=== PATIENT | male | born 1950 | race Caucasian/White ===

== ENCOUNTER 2016-05-22 14:34 | Emergency (ER) | payer OTHER ==
[~2016-05-22] VITALS: Ht 170.2 cm; Wt 85.0 kg
[~2016-05-22 14:34] MED LIST: AMLO5 PO; ATOR1TAB18 PO; CLOP75TA PO; CYCL5TAB PO; HYDR-3533 PO; ISOS30TA3 PO; METO50TA PO
[2016-05-22 14:43] VITALS: BP 110/73; PULSE 66; RESP 17; TEMP 97.9; O2SAT 100
[2016-05-22] MEDS ORDERED: METO100T PO (16:29)
[2016-05-22] MEDS ORDERED: ATOR1TAB18 PO (16:29)
[2016-05-22] MEDS ORDERED: CLOP75TA PO (16:29)
[2016-05-22] MEDS ORDERED: ASPI1TAB69 PO (16:29)
[2016-05-22] MEDS ORDERED: NITROGLYCERIN 2% OINT 1 GM PACKET TOP ONE (16:45)
[2016-05-22] MEDS ORDERED: ASPIRIN 325 MG TAB PO ONE (16:45)
[2016-05-22] MEDS ORDERED: SODIUM CHLORIDE 0.9% FLUSH 5 ML FLUSH IVF PRN (16:45)
--- NOTE | 2016-05-22 16:47 | PD ---
HPI Chief Complaint: Pain: Acute or Chronic Time Seen by Provider: 16:34 Travel History International Travel<30 days: No Contact w/Intl Traveler<30days: No Traveled to known affect area: No History of Present Illness HPI 66-year-old male with history of CAD status post CABG, peripheral vascular disease, hypertension, presents to the ER today because of upper back discomfort and chest discomfort which he rates at a 5 out of 10, worsens with exertion, without radiation. He denies any shortness of breath, nausea, vomiting, coughing, or any other symptoms. He states he has not had similar symptoms in the past. He denies injuries. Modifying Factors: Worse with exertion Associated Signs & Symptoms: Upper back and chest pain Risk Factors: Cardiac history PFSH Past Medical History Hx Anticoagulant Therapy: Yes (PLAVIX) Arthritis: Yes Blood Disorders: Yes (HX OF BEING NON-COMPLIANT WITH COUMADIN THERAPY) Heart Rhythm Problems: No Cancer: No Cardiac Catheterization: Yes (03/2014) Cardiovascular Problems: Yes (CT, HTN) High Cholesterol: Yes Chemotherapy: No Chest Pain: Yes Congestive Heart Failure: Yes Cerebrovascular Accident: Yes (CVA) Coronary Artery Disease: Yes Diabetes: No Diminished Hearing: No Endocrine: No Gastrointestinal Disorders: No Genitourinary: No Headaches: Yes Hepatitis: No Hiatal Hernia: No Hypertension: Yes Immune Disorder: No Implanted Vascular Access Dvce: Yes Musculoskeletal: Yes (TENDONITIS) Neurologic: Yes (STROKE 2007) Psychiatric: No Reproductive: No Respiratory: No Immunizations Current: Yes (FLU SHOT-2007) Thyroid Disease: No Influenza Vaccination: No ?: Not Past Surgical History Abdominal Surgery: No AICD: No Arteriovenous Shunt: No Body Medical Devices: STENTS X 4 TO RCA,chest wires from cabg Cardiac Surgery: Yes (4 STENTS PLACED 03/27,cabg one ves) Coronary Artery Bypass Graft: Yes (X 1 VESSEL 2004) Ear Surgery: No Endocrine Surgery: No Eye Surgery: No Genitourinary Surgery: No Gynecologic Surgery: No Hysterectomy: No Insulin Pump: No Joint Replacement: No Neurologic Surgery: No Oral Surgery: No Pacemaker: No Thoracic Surgery: No Tonsillectomy: Yes (1968) Other Surgery: Yes (ABCESS REMOVED RIGHT BUTTOCKS X8) Social History Alcohol Use: No Tobacco Use: No (QUIT 04/02/14) Substance Use: No Allergies-Medications (Allergen,Severity, Reaction): Coded Allergies: No Known Allergies (Verified , 05/22/16) Reported Meds & Prescriptions Reported Meds & Active Scripts Active Reported Clopidogrel (Clopidogrel Bisulfate) 75 Mg Tab 75 Mg PO DAILY Atorvastatin (Atorvastatin Calcium) 80 Mg Tab 80 Mg PO HS Aspirin 81 Mg Tabdr 81 Mg PO DAILY Metoprolol Tartrate 100 Mg Tab 100 Mg PO BID Norvasc (Amlodipine Besylate) 5 Mg Tab 5 Mg PO DAILY Isosorbide Mononitrate ER (Isosorbide Mononitrate) 30 Mg Leonarda 30 Mg PO DAILY Review of Systems Except as stated in HPI: all other systems reviewed are Neg Physical Exam Narrative GENERAL: Well-developed elderly white male in no acute distress. Awake and oriented 3. SKIN: Warm and dry. HEAD: Atraumatic. Normocephalic. EYES: Pupils equal and round. No scleral icterus. No injection or drainage. ENT: No nasal bleeding or discharge. Mucous membranes pink and moist. NECK: Trachea midline. No JVD. CARDIOVASCULAR: Regular rate and rhythm. No murmur appreciated. Pulses are present and equal bilaterally. RESPIRATORY: No accessory muscle use. Clear to auscultation. Breath sounds equal bilaterally. GASTROINTESTINAL: Abdomen soft, non-tender, nondistended. Hepatic and splenic margins not palpable. MUSCULOSKELETAL: No obvious deformities. No clubbing. No cyanosis. No edema. NEUROLOGICAL: Awake and alert. No obvious cranial nerve deficits. Motor grossly within normal limits. Normal speech. PSYCHIATRIC: Appropriate mood and affect; insight and judgment normal. Data Data Last Documented VS Vital Signs Date Time Temp Pulse Resp B/P Pulse Ox O2 Delivery O2 Flow Rate FiO2 05/22/16 17:15 62 14 102/66 96 Room Air 05/22/16 14:43 97.9 Orders Electrocardiogram (05/22/16 16:34) Ckmb (Isoenzyme) Profile (05/22/16 16:34) Complete Blood Count With Diff (05/22/16 16:34) Comprehensive Metabolic Panel (05/22/16 16:34) Magnesium (Mg) (05/22/16 16:34) Prothrombin Time / Inr (Pt) (05/22/16 16:34) Act Partial Throm Time (Ptt) (05/22/16 16:34) Troponin I (05/22/16 16:34) Lipase (05/22/16 16:34) Chest, Single Ap (05/22/16 16:34) Ecg Monitoring (05/22/16 16:34) Bilateral Bp Monitoring (05/22/16 16:34) Iv Access Insert/Monitor (05/22/16 16:34) Oximetry (05/22/16 16:34) Oxygen Administration (05/22/16 16:34) Aspirin (Aspirin) (05/22/16 16:45) Nitroglycerin 2% Oint (Nitroglycerin 2% (05/22/16 16:45) Sodium Chloride 0.9% Flush (Ns Flush) (05/22/16 16:45) Labs Laboratory Tests Test 05/22/16 16:15 White Blood Count 7.3 TH/MM3 Red Blood Count 4.80 MIL/MM3 Hemoglobin 14.9 GM/DL Hematocrit 45.2 % Mean Corpuscular Volume 94.3 FL Mean Corpuscular Hemoglobin 31.1 PG Mean Corpuscular Hemoglobin 33.0 % Concent Red Cell Distribution Width 13.1 % Platelet Count 395 TH/MM3 Mean Platelet Volume 7.1 FL Neutrophils (%) (Auto) 62.5 % Lymphocytes (%) (Auto) 27.3 % Monocytes (%) (Auto) 6.8 % Eosinophils (%) (Auto) 2.8 % Basophils (%) (Auto) 0.6 % Neutrophils # (Auto) 4.6 TH/MM3 Lymphocytes # (Auto) 2.0 TH/MM3 Monocytes # (Auto) 0.5 TH/MM3 Eosinophils # (Auto) 0.2 TH/MM3 Basophils # (Auto) 0.0 TH/MM3 CBC Comment DIFF FINAL Differential Comment Prothrombin Time 10.0 SEC Prothromb Time International 0.9 RATIO Ratio Activated Partial 26.3 SEC Thromboplast Time Sodium Level 140 MEQ/L Potassium Level 4.7 MEQ/L Chloride Level 108 MEQ/L Carbon Dioxide Level 23.4 MEQ/L Anion Gap 9 MEQ/L Blood Urea Nitrogen 11 MG/DL Creatinine 1.00 MG/DL Estimat Glomerular Filtration 75 ML/MIN Rate Random Glucose 97 MG/DL Calcium Level 8.3 MG/DL Magnesium Level 2.1 MG/DL Total Bilirubin 0.3 MG/DL Aspartate Amino Transf 18 U/L (AST/SGOT) Alanine Aminotransferase 31 U/L (ALT/SGPT) Alkaline Phosphatase 123 U/L Total Creatine Kinase 32 U/L Troponin I LESS THAN 0.02 NG/ML Total Protein 7.0 GM/DL Albumin 3.1 GM/DL Lipase 99 U/L [facility] Medical Decision Making Medical Screen Exam Complete: Yes Emergency Medical Condition: Yes Medical Record Reviewed: Yes Interpretation(s) EKG shows a normal sinus rhythm at a rate of 60 bpm with a left fascicular block and right bundle branch block pattern. No signs of acute ST-T changes. Laboratory Tests Test 05/22/16 16:15 Chloride Level 108 MEQ/L (98-107) Estimat Glomerular Filtration 75 ML/MIN (>89) Rate Calcium Level 8.3 MG/DL (8.5-10.1) Alkaline Phosphatase 123 U/L (45-117) Total Creatine Kinase 32 U/L (39-308) Troponin I LESS THAN 0.02 NG/ML (0.02-0.05) Albumin 3.1 GM/DL (3.4-5.0) Differential Diagnosis Upper back and chest painACS versus musculoskeletal versus pleurisy versus pneumonia Narrative Course Chest x-ray did not show any signs of acute pulmonary processes. Vital signs are stable. Cardiac enzymes are negative. EKG did not show any signs of acute ST-T changes. Patient was given aspirin and nitroglycerin in the ER. On reevaluation at 5:30 PM, he reports no significant improvement in back discomfort. At this point, I have offered to admit the patient for further evaluation and treatment as well as cardiology evaluation. Has cardiac risk factors and is a higher risk category for other acute processes. However, the patient states he does not want to get further workup at this time, states that he wants to follow-up with who is his picker packer. I have talked him about the fact that due to the fact that we cannot completely rule out acute processes, he needs to return if he feels any worsening or if he changes his mind. He states understanding. At this point, he has stated that he would prefer to follow-up as an outpatient even though risk of acute processes or underlying cardiac processes cannot be ruled out. Diagnosis Primary Impression: Chest pain Additional Impression: Back pain Med/Other Pt SpecificInfo: Prescription(s) given Scripts Hydrocodone-Acetaminophen (Lortab)5-325 Mg Tab1 Tab PO Q6H PRN (PAIN) #12 TAB Ref 0 Prov:Michell Mejia MD 05/22/16 Disposition: 01 DISCHARGE HOME Condition: Stable SoonMichell costa MD May 22, 2016 16:47
[2016-05-22 16:48] VITALS: O2SAT 98
[2016-05-22 16:50] LABS: AUTOMATED NEUTROPHIL # 4.6 TH/MM3 (1.8-7.7); BASOPHIL % 0.6 % (0.0-2.0); EOSINOPHIL # 0.2 TH/MM3 (0-0.4); EOSINOPHIL % 2.8 % (0.0-4.0); HEMATOCRIT 45.2 % (39.0-51.0); HEMO FLAGS DIFF FINAL; LYMPH % 27.3 % (9.0-44.0); MEAN CELL VOLUME 94.3 FL (80.0-100.0); MEAN CORPUSCULAR HEMOGLOBIN 31.1 PG (27.0-34.0); MONO % 6.8 % (0.0-8.0); NEUT % 62.5 % (16.0-70.0); PLATELET COUNT 395 TH/MM3 (150-450); RED CELL DISTRIBUTION WIDTH 13.1 % (11.6-17.2); WHITE BLOOD COUNT 7.3 TH/MM3 (4.0-11.0)
--- NOTE | 2016-05-22 16:57 | RADHPO ---
EXAM DATE/TIME: 05/22/2016 16:45 [facility] COMPARISON: No previous studies available for comparison. INDICATIONS : Chest pain MEDICAL HISTORY : None. SURGICAL HISTORY : CABG. ENCOUNTER: Initial ACUITY: 1 day PAIN SCORE: 8/10 LOCATION: Bilateral chest FINDINGS: A single view of the chest demonstrates the lungs to be symmetrically aerated without evidence of mas s, infiltrate or effusion. The cardiomediastinal contours are unremarkable. Osseous structures are intact. Median sternotomy changes are again noted. CONCLUSION: No evidence of acute cardiopulmonary disease. Javier Zavala MD on May 22, 2016 at 16:56 Board Certified Radiologist. This report was verified electronically.
[2016-05-22 17:01] LABS: CHLORIDE 108 MEQ/L (98-107); POTASSIUM 4.7 MEQ/L (3.5-5.1); SODIUM (NA) 140 MEQ/L (136-145)
[2016-05-22 17:05] LABS: ANION GAP 9 MEQ/L (5-15); APTT (PATIENT) 26.3 SEC (24.3-30.1); BICARBONATE 23.4 MEQ/L (21.0-32.0); BLOOD UREA NITROGEN 11 MG/DL (7-18); INTERNATIONAL NORMALIZED RATIO 0.9 RATIO; MAGNESIUM 2.1 MG/DL (1.5-2.5)
[2016-05-22 17:08] LABS: ALT (GPT) 31 U/L (12-78); AST (GOT) 18 U/L (15-37); GLOMERULAR FILTRATION RATE 75 ML/MIN (>89)
[2016-05-22 17:09] LABS: TOTAL BILIRUBIN ADULT 0.3 MG/DL (0.2-1.0)
[2016-05-22 17:11] LABS: ALKALINE PHOSPHATASE 123 U/L (45-117)
[2016-05-22 17:15] VITALS: BP 102/66; PULSE 62; RESP 14; O2SAT 96
[2016-05-22 17:28] LABS: CREATINE KINASE 32 U/L (39-308)
[2016-05-22] MEDS ORDERED: HYDR-3533 PO (17:39)
--- NOTE | 2016-05-23 15:00 | EKG ---
Date Performed: 05/22/2016 Time Performed: 16:37:18 PTAGE: 66 years EKG: Sinus rhythm Left axis deviation RBBB with left anterior fascicular block Possible anterior infarct - age undeter mined Inferior/lateral ST-T changes may be due to myocardial ischemia Abnormal ECG Compared to prior tracing no significant change PREVIOUS TRACING : 05/22/2016 16.09 DOCTOR: Mindy Fisher Interpretating Date/Time 05/23/2016 14:53:39
--- NOTE | 2016-05-23 15:44 | EKG ---
Date Performed: 05/22/2016 Time Performed: 16:09:38 PTAGE: 66 years EKG: Sinus bradycardia Left axis deviation RBBB with left anterior fascicular block Possible ant erior infarct - age undetermined Inferior/lateral ST-T changes may be due to myocardial ischemia Comp ared to the previous tracing the patient has developed prominent lateral T wave changes. They are non specific but clinical correlation will be important. Abnormal ECG PREVIOUS TRACING : 07/17/2015 13.29 DOCTOR: Mindy Fisher Interpretating Date/Time 05/23/2016 15:42:07
== END 2016-05-22 17:52 | disposition home or self-care (01) ==
LOC: PHED 14:34
DX: R07.9 Chest pain, unspecified (principal); M54.9 Dorsalgia, unspecified; I10 Essential (primary) hypertension; I50.9 Heart failure, unspecified; Z86.73 Personal history of transient ischemic attack (TIA), and cerebral infarction without residual deficits; I25.10 Atherosclerotic heart disease of native coronary artery without angina pectoris; E78.00 Pure hypercholesterolemia, unspecified; Z79.01 Long term (current) use of anticoagulants; Z87.891 Personal history of nicotine dependence
CPT/HCPCS: 71010; 80053; 82550; 83690; 83735; 84484; 85025; 85610; 85730; 93005

== ENCOUNTER 2016-09-18 01:01 | Emergency (ER) | payer OTHER ==
[~2016-09-18] VITALS: Ht 170.2 cm; Wt 86.6 kg
[~2016-09-18 01:01] MED LIST changes: +ASPI1TAB69 PO; -CYCL5TAB PO; +METO100T PO; -METO50TA PO
[2016-09-18 01:20] VITALS: BP 134/69; PULSE 72; RESP 18; TEMP 98.3; O2SAT 98
[2016-09-18 02:20] VITALS: BP 122/71; PULSE 69; RESP 17; O2SAT 98
[2016-09-18] MEDS ORDERED: ASPI81CH CHEW (03:11)
[2016-09-18] MEDS ORDERED: traMADol HCL 50 MG TAB PO ONE (03:15)
[2016-09-18 03:20] VITALS: BP 119/70; PULSE 72; RESP 18; O2SAT 95
[2016-09-18 03:23] LABS: AUTOMATED NEUTROPHIL # 8.3 TH/MM3 (1.8-7.7); BASOPHIL # 0.1 TH/MM3 (0-0.2); BASOPHIL % 1.2 % (0.0-2.0); EOSINOPHIL # 0.2 TH/MM3 (0-0.4); EOSINOPHIL % 1.9 % (0.0-4.0); HEMATOCRIT 46.4 % (39.0-51.0); HEMO FLAGS DIFF FINAL; LYMPH % 19.1 % (9.0-44.0); LYMPHOCYTE # 2.2 TH/MM3 (1.0-4.8); MEAN CELL VOLUME 94.8 FL (80.0-100.0); MEAN CORPUSCULAR HEMOGLOBIN 32.2 PG (27.0-34.0); MEAN CORPUSCULAR HGB CONC 33.9 % (32.0-36.0); NEUT % 70.8 % (16.0-70.0); PLATELET COUNT 323 TH/MM3 (150-450); RED CELL DISTRIBUTION WIDTH 12.4 % (11.6-17.2); WHITE BLOOD COUNT 11.6 TH/MM3 (4.0-11.0)
[2016-09-18 03:29] LABS: BLOOD UREA NITROGEN 12 MG/DL (7-18); GLOMERULAR FILTRATION RATE 60 ML/MIN (>89)
--- NOTE | 2016-09-18 03:29 | PD ---
HPI Chief Complaint: Pain: Acute or Chronic Time Seen by Provider: 03:26 Travel History International Travel<30 days: No Contact w/Intl Traveler<30days: No Traveled to known affect area: No History of Present Illness HPI 66-year-old male with history of CAD status post CABG, hypertension, previous stroke, presents to the ER today with left-sided shoulder pain that started while he was eating, states that he is not sure whether she looked his shoulder wrong. He states the pain is currently a 7 out of 10 and it hurts more with movement of his shoulder. Pain is more isolated to the left anterior rotator cuff area. He denies any shortness of breath, fevers, coughing, or any other symptoms. Modifying Factors: None Associated Signs & Symptoms: Left-sided shoulder pain Risk Factors: None PFSH Past Medical History Hx Anticoagulant Therapy: Yes (PLAVIX) Arthritis: Yes Blood Disorders: Yes (HX OF BEING NON-COMPLIANT WITH COUMADIN THERAPY) Heart Rhythm Problems: No Cancer: No Cardiac Catheterization: Yes (03/2014) Cardiovascular Problems: Yes (CABGX1, [place]) High Cholesterol: Yes Chemotherapy: No Chest Pain: Yes Congestive Heart Failure: Yes Cerebrovascular Accident: Yes Coronary Artery Disease: Yes Diabetes: No Diminished Hearing: No Endocrine: No Gastrointestinal Disorders: No Genitourinary: No Headaches: Yes Hepatitis: No Hiatal Hernia: No Hypertension: Yes Immune Disorder: No Implanted Vascular Access Dvce: Yes Musculoskeletal: Yes (TENDONITIS) Neurologic: Yes (STROKE 2007) Psychiatric: No Reproductive: No Respiratory: No Immunizations Current: Yes (FLU SHOT-2007) Thyroid Disease: No Tetanus Vaccination: < 5 Years Past Surgical History Abdominal Surgery: No AICD: No Arteriovenous Shunt: No Body Medical Devices: STENTS X 4 TO RCA,chest wires from cabg Cardiac Surgery: Yes (4 STENTS PLACED 03/27,cabg one ves) Coronary Artery Bypass Graft: Yes (X 1 VESSEL 2004) Ear Surgery: No Endocrine Surgery: No Eye Surgery: No Genitourinary Surgery: No Gynecologic Surgery: No Hysterectomy: No Insulin Pump: No Joint Replacement: No Neurologic Surgery: No Oral Surgery: No Pacemaker: No Thoracic Surgery: No Tonsillectomy: Yes (1968) Other Surgery: Yes (ABCESS REMOVED RIGHT BUTTOCKS X8) Social History Alcohol Use: No Tobacco Use: No (QUIT 04/02/14) Substance Use: No Allergies-Medications (Allergen,Severity, Reaction): Coded Allergies: No Known Allergies (Verified , 09/18/16) Reported Meds & Prescriptions Reported Meds & Active Scripts Active Reported Aspirin 81 Mg Chew 81 Mg CHEW DAILY Clopidogrel (Clopidogrel Bisulfate) 75 Mg Tab 75 Mg PO DAILY Atorvastatin (Atorvastatin Calcium) 80 Mg Tab 80 Mg PO HS Metoprolol Tartrate 100 Mg Tab 50 Mg PO BID Norvasc (Amlodipine Besylate) 5 Mg Tab 5 Mg PO DAILY Isosorbide Mononitrate ER (Isosorbide Mononitrate) 30 Mg Leonarda 30 Mg PO DAILY Review of Systems Except as stated in HPI: all other systems reviewed are Neg Physical Exam Narrative GENERAL: Well-developed elderly white male patient currently in mild distress. Awake and oriented 3. SKIN: Focused skin assessment warm/dry. HEAD: Atraumatic. Normocephalic. EYES: Pupils equal and round. No scleral icterus. No injection or drainage. ENT: No nasal bleeding or discharge. Mucous membranes pink and moist. NECK: Trachea midline. No JVD. CARDIOVASCULAR: Regular rate and rhythm. No murmur appreciated. Pulses are present and equal bilaterally. RESPIRATORY: No accessory muscle use. Clear to auscultation. Breath sounds equal bilaterally. GASTROINTESTINAL: Abdomen soft, non-tender, nondistended. Hepatic and splenic margins not palpable. MUSCULOSKELETAL: No obvious deformities. No clubbing. No cyanosis. No edema. EXTREMITIES: No clubbing, cyanosis, or edema. No joint tenderness, effusion, or edema noted. There is mild tenderness on palpation of the left anterior shoulder area without obvious deformities, tenderness with passive range of motion of arm overhead. NEUROLOGICAL: Awake and alert. No obvious cranial nerve deficits. Motor grossly within normal limits. Normal speech. PSYCHIATRIC: Appropriate mood and affect; insight and judgment normal. Data Data Last Documented VS Vital Signs Date Time Temp Pulse Resp B/P Pulse Ox O2 Delivery O2 Flow Rate FiO2 09/18/16 03:33 17 09/18/16 03:20 72 119/70 95 Room Air 09/18/16 01:20 98.3 Orders Tramadol (Ultram) (09/18/16 03:15) Complete Blood Count With Diff (09/18/16 02:30) Creatine Kinase (Cpk) (09/18/16 02:30) Comprehensive Metabolic Panel (09/18/16 02:30) Troponin I (09/18/16 02:30) Labs Laboratory Tests Test 09/18/16 02:30 White Blood Count 11.6 TH/MM3 Red Blood Count 4.90 MIL/MM3 Hemoglobin 15.8 GM/DL Hematocrit 46.4 % Mean Corpuscular Volume 94.8 FL Mean Corpuscular Hemoglobin 32.2 PG Mean Corpuscular Hemoglobin 33.9 % Concent Red Cell Distribution Width 12.4 % Platelet Count 323 TH/MM3 Mean Platelet Volume 7.5 FL Neutrophils (%) (Auto) 70.8 % Lymphocytes (%) (Auto) 19.1 % Monocytes (%) (Auto) 7.0 % Eosinophils (%) (Auto) 1.9 % Basophils (%) (Auto) 1.2 % Neutrophils # (Auto) 8.3 TH/MM3 Lymphocytes # (Auto) 2.2 TH/MM3 Monocytes # (Auto) 0.8 TH/MM3 Eosinophils # (Auto) 0.2 TH/MM3 Basophils # (Auto) 0.1 TH/MM3 CBC Comment DIFF FINAL Differential Comment Sodium Level 136 MEQ/L Potassium Level 4.6 MEQ/L Chloride Level 103 MEQ/L Carbon Dioxide Level 26.3 MEQ/L Anion Gap 7 MEQ/L Blood Urea Nitrogen 12 MG/DL Creatinine 1.20 MG/DL Estimat Glomerular Filtration 60 ML/MIN Rate Random Glucose 107 MG/DL Calcium Level 8.3 MG/DL Total Bilirubin 0.5 MG/DL Aspartate Amino Transf 32 U/L (AST/SGOT) Alanine Aminotransferase 40 U/L (ALT/SGPT) Alkaline Phosphatase 140 U/L Total Creatine Kinase 61 U/L Troponin I LESS THAN 0.02 NG/ML Total Protein 7.6 GM/DL Albumin 3.4 GM/DL [facility] Medical Decision Making Medical Screen Exam Complete: Yes Emergency Medical Condition: Yes Medical Record Reviewed: Yes Interpretation(s) EKG shows normal sinus rhythm at a rate of 65 bpm with a right bundle branch block pattern. There are nonspecific septal and inferior T-wave changes. Laboratory Tests Test 09/18/16 02:30 White Blood Count 11.6 TH/MM3 (4.0-11.0) Neutrophils (%) (Auto) 70.8 % (16.0-70.0) Neutrophils # (Auto) 8.3 TH/MM3 (1.8-7.7) Estimat Glomerular Filtration 60 ML/MIN (>89) Rate Random Glucose 107 MG/DL (74-106) Calcium Level 8.3 MG/DL (8.5-10.1) Alkaline Phosphatase 140 U/L (45-117) Troponin I LESS THAN 0.02 NG/ML (0.02-0.05) Differential Diagnosis Shoulder arthritis versus atypical chest pain versus shoulder strain Narrative Course X-rays of the shoulders show some signs of degenerative changes. Chest x-ray did not show any signs of acute processes. Patient is fairly comfortable in the ER and was given tramadol with some improvement in pain. It still hurts with movements. At this point, I do not think that this is heart related and is much more likely to be a musculoskeletal issue. My plan would be to give him symptomatic relief or pain, shoulder sling, with heavy lifting. Follow-up with primary care physician. Return for any worsening in symptoms as necessary. The plan was discussed with him and he states understanding. Diagnosis Primary Impression: Left shoulder strain Med/Other Pt SpecificInfo: Prescription(s) given Scripts Hydrocodone-Acetaminophen (Lortab)5-325 Mg Tab1 Tab PO Q6H PRN (PAIN) #5 TAB Ref 0 Prov:Michell Mejia MD 09/18/16 Disposition: 01 DISCHARGE HOME Condition: Stable Michell Mejia MD Sep 18, 2016 03:29
[2016-09-18 03:30] LABS: ALKALINE PHOSPHATASE 140 U/L (45-117); ALT (GPT) 40 U/L (12-78); AST (GOT) 32 U/L (15-37); POTASSIUM 4.6 MEQ/L (3.5-5.1); SODIUM (NA) 136 MEQ/L (136-145); TOTAL BILIRUBIN ADULT 0.5 MG/DL (0.2-1.0)
[2016-09-18 03:31] LABS: ANION GAP 7 MEQ/L (5-15); BICARBONATE 26.3 MEQ/L (21.0-32.0); CHLORIDE 103 MEQ/L (98-107); CREATINE KINASE 61 U/L (39-308)
[2016-09-18 03:33] VITALS: RESP 17
[2016-09-18] MEDS ORDERED: HYDR-3533 PO (04:03)
[2016-09-18 04:20] VITALS: BP 119/20
--- NOTE | 2016-09-18 11:40 | RADRPT ---
EXAM DATE/TIME: 09/18/2016 02:29 [facility] COMPARISON: No previous studies available for comparison. INDICATIONS : Left anterior shoulder pain. MEDICAL HISTORY : Hypertension. SURGICAL HISTORY : Bypass ENCOUNTER: Initial ACUITY: 1 day PAIN SCORE: 7/10 LOCATION: Left Shoulder FINDINGS: Multiple view examination of the left shoulder demonstrates no evidence of fracture or dislocation. The glenohumeral and acromioclavicular joints are maintained. Mild degenerative changes. There is nor mal range of motion between internal and external rotation. Bony mineralization is normal. CONCLUSION: Mild degenerative changes without fracture. Dangelo Walters MD on September 18, 2016 at 3:33 Board Certified Radiologist. This report was verified electronically.
--- NOTE | 2016-09-18 11:40 | RADRPT ---
EXAM DATE/TIME: 09/18/2016 02:28 [facility] COMPARISON: No previous studies available for comparison. INDICATIONS : Left shoulder pain. MEDICAL HISTORY : Hypertension. SURGICAL HISTORY : Bypass ENCOUNTER: Initial ACUITY: 1 day PAIN SCORE: 0/10 LOCATION: Bilateral chest FINDINGS: AP and lateral views of the chest demonstrate the lungs to be symmetrically aerated without evidence of mass, infiltrate or effusion. Status post CABG. The cardiomediastinal contours are unremarkable. Osseous structures are intact. CONCLUSION: No acute disease. Dangelo Walters MD on September 18, 2016 at 3:33 Board Certified Radiologist. This report was verified electronically.
--- NOTE | 2016-09-18 13:33 | EKG ---
Date Performed: 09/18/2016 Time Performed: 02:20:03 PTAGE: 66 years EKG: Sinus rhythm RIGHT BUNDLE BRANCH BLOCK LEFT ANTERIOR FASCICULAR BLOCK POSSIBLE SEPTAL MYOCARDIAL INFARCTION MODER ATE T-WAVE ABNORMALITY, CONSIDER LATERAL ISCHEMIA ABNORMAL ECG PREVIOUS TRACING : 05/22/2016 16.37 Compared to prior tracing no significant change DOCTOR: Ramón Ortega Interpretating Date/Time 09/18/2016 13:33:11
== END 2016-09-18 04:20 | disposition home or self-care (01) ==
LOC: PHED 01:01
DX: S46.912A Strain of unspecified muscle, fascia and tendon at shoulder and upper arm level, left arm, initial encounter (principal); R94.31 Abnormal electrocardiogram [ECG] [EKG]; I10 Essential (primary) hypertension; E78.00 Pure hypercholesterolemia, unspecified; X58.XXXA Exposure to other specified factors, initial encounter; Z95.1 Presence of aortocoronary bypass graft; Z79.01 Long term (current) use of anticoagulants; Z87.39 Personal history of other diseases of the musculoskeletal system and connective tissue; Z86.79 Personal history of other diseases of the circulatory system; Z86.69 Personal history of other diseases of the nervous system and sense organs; Z87.891 Personal history of nicotine dependence
CPT/HCPCS: 71020; 73030; 80053; 82550; 84484; 85025; 93005; 99283

== ENCOUNTER 2017-03-08 10:02 | Emergency (ER) | payer OTHER ==
[~2017-03-08] VITALS: Ht 170.2 cm; Wt 89.0 kg
[~2017-03-08 10:02] MED LIST changes: +ASPI-516 CHEW; -ASPI1TAB69 PO; -ATOR1TAB18 PO; +ATOR80TA45 PO
[2017-03-08 10:08] VITALS: BP 147/72; PULSE 67; RESP 16; TEMP 99.3; O2SAT 97
[2017-03-08] MEDS ORDERED: VITA1000 PO (10:39)
[2017-03-08 10:58] LABS: AUTOMATED NEUTROPHIL # 5.2 TH/MM3 (1.8-7.7); BASOPHIL # 0.3 TH/MM3 (0-0.2); BASOPHIL % 3.8 % (0.0-2.0); EOSINOPHIL # 0.2 TH/MM3 (0-0.4); EOSINOPHIL % 2.8 % (0.0-4.0); HEMATOCRIT 43.7 % (39.0-51.0); HEMOGLOBIN 14.5 GM/DL (13.0-17.0); LYMPH % 24.6 % (9.0-44.0); MEAN CELL VOLUME 94.5 FL (80.0-100.0); MEAN CORPUSCULAR HEMOGLOBIN 31.3 PG (27.0-34.0); MEAN CORPUSCULAR HGB CONC 33.1 % (32.0-36.0); MEAN PLATELET VOLUME 7.2 FL (7.0-11.0); MONO % 5.9 % (0.0-8.0); MONOCYTE # 0.5 TH/MM3 (0-0.9); NEUT % 62.9 % (16.0-70.0); PLATELET COUNT 438 TH/MM3 (150-450); RED BLOOD COUNT 4.63 MIL/MM3 (4.50-5.90); RED CELL DISTRIBUTION WIDTH 13.8 % (11.6-17.2); WHITE BLOOD COUNT 8.3 TH/MM3 (4.0-11.0)
[2017-03-08 11:06] LABS: CHLORIDE 107 MEQ/L (98-107); SODIUM (NA) 140 MEQ/L (136-145)
[2017-03-08 11:09] LABS: CALCIUM 8.2 MG/DL (8.5-10.1)
[2017-03-08 11:10] LABS: ALBUMIN 3.1 GM/DL (3.4-5.0); BICARBONATE 25.2 MEQ/L (21.0-32.0); BLOOD UREA NITROGEN 12 MG/DL (7-18); GLUCOSE,RANDOM 110 MG/DL (74-106)
[2017-03-08 11:13] LABS: ALT (GPT) 61 U/L (12-78); AST (GOT) 48 U/L (15-37); GLOMERULAR FILTRATION RATE 67 ML/MIN (>89)
[2017-03-08 11:14] LABS: TOTAL BILIRUBIN ADULT 0.3 MG/DL (0.2-1.0)
[2017-03-08 11:16] LABS: ALKALINE PHOSPHATASE 159 U/L (45-117)
[2017-03-08 11:20] VITALS: BP 123/75; PULSE 55; RESP 18; O2SAT 100
--- NOTE | 2017-03-08 11:26 | PD ---
HPI Chief Complaint: Abdominal Pain Time Seen by Provider: 10:37 Travel History International Travel<30 days: No Contact w/Intl Traveler<30days: No Traveled to known affect area: No History of Present Illness HPI Patient is a 67 year old male who comes in due to abnormal labs. He says that the nurse from his doctor's office called and told him to come to the ED because something was abnormal in the blood work he had done a week ago. He does not remember what was abnormal. He says he has no complaints. He saw his doctor for a routine check up. He says he had diarrhea for a few days, but this has resolved. He denies chest pain, SOB, abdominal pain. PFSH Past Medical History Hx Anticoagulant Therapy: Yes Arthritis: Yes Blood Disorders: Yes (HX OF BEING NON-COMPLIANT WITH COUMADIN THERAPY) Heart Rhythm Problems: No Cancer: No Cardiac Catheterization: Yes (03/2014) Cardiovascular Problems: Yes (htn on meds, [place] , total of 7 stents, bypass 1 vessel) High Cholesterol: Yes Chemotherapy: No Chest Pain: Yes Congestive Heart Failure: Yes Cerebrovascular Accident: Yes (tia) Coronary Artery Disease: Yes Diabetes: No Diminished Hearing: No Endocrine: No Gastrointestinal Disorders: No Genitourinary: No Headaches: Yes Hepatitis: No Hiatal Hernia: No Hypertension: Yes Immune Disorder: No Implanted Vascular Access Dvce: Yes Medical other: Yes (chronic back pain) Musculoskeletal: Yes (TENDONITIS bilat hands) Neurologic: Yes (STROKE 2008) Psychiatric: No Reproductive: No Respiratory: No Immunizations Current: Yes Thyroid Disease: No Tetanus Vaccination: < 5 Years Influenza Vaccination: No Past Surgical History Abdominal Surgery: No AICD: No Arteriovenous Shunt: No Body Medical Devices: STENTS X 4 TO RCA,chest wires from cabg Cardiac Surgery: Yes (4 STENTS PLACED 03/27,cabg one ves) Coronary Artery Bypass Graft: Yes (X 1 VESSEL 2005 bypass) Ear Surgery: No Endocrine Surgery: No Eye Surgery: No Genitourinary Surgery: No Gynecologic Surgery: No Hysterectomy: No Insulin Pump: No Joint Replacement: No Neurologic Surgery: No Oral Surgery: No Pacemaker: No Thoracic Surgery: No Tonsillectomy: Yes (1968) Other Surgery: Yes (ABCESS REMOVED RIGHT BUTTOCKS X8, right leg surgery for PVD ) Social History Alcohol Use: Yes (BEER) Tobacco Use: No (QUIT 1/21/15 SMOKED CIGS) Substance Use: No Allergies-Medications (Allergen,Severity, Reaction): Coded Allergies: No Known Allergies (Verified Adverse Reaction, Unknown, 03/08/17) Reported Meds & Prescriptions Reported Meds & Active Scripts Active Reported Vitamin D-1000 (Cholecalciferol) 1,000 Unit Tab 1,000 Units PO DAILY Aspirin 81 Mg Chew 81 Mg CHEW DAILY Clopidogrel (Clopidogrel Bisulfate) 75 Mg Tab 75 Mg PO DAILY Atorvastatin (Atorvastatin Calcium) 80 Mg Tab 80 Mg PO HS Metoprolol Tartrate 100 Mg Tab 50 Mg PO BID Norvasc (Amlodipine Besylate) 5 Mg Tab 5 Mg PO DAILY Isosorbide Mononitrate ER (Isosorbide Mononitrate) 30 Mg Leonarda 30 Mg PO DAILY Review of Systems General / Constitutional: No: Fever, Chills HENT: No: Headaches, Lightheadedness Cardiovascular: No: Chest Pain or Discomfort Respiratory: No: Shortness of Breath Gastrointestinal: No: Nausea, Vomiting, Abdominal Pain Genitourinary: No: Dysuria Musculoskeletal: No: Myalgias, Edema Skin: No Rash, No Change in Pigmentation Neurologic: No: Weakness, Dizziness Physical Exam Narrative GENERAL: Awake and alert, in no acute distress. SKIN: Focused skin assessment warm/dry. No wounds or signs of infection. HEAD: Atraumatic. Normocephalic. EYES: Pupils equal and round. No scleral icterus. ENT: Mucous membranes pink and moist. CARDIOVASCULAR: Regular rate and rhythm. No murmur appreciated. RESPIRATORY: No accessory muscle use. Clear to auscultation. Breath sounds equal bilaterally. GASTROINTESTINAL: Abdomen soft, non-tender, nondistended. Hepatic and splenic margins not palpable. MUSCULOSKELETAL: No obvious deformities. No clubbing. No cyanosis. No edema. NEUROLOGICAL: Awake and alert. No obvious cranial nerve deficits. Motor grossly within normal limits. Normal speech. Data Data Last Documented VS Vital Signs Date Time Temp Pulse Resp B/P (MAP) Pulse Ox O2 Delivery O2 Flow Rate FiO2 03/08/17 11:20 55 18 123/75 (91) 100 Room Air 03/08/17 10:08 99.3 Orders Orders Complete Blood Count With Diff (03/08/17 10:41) Comprehensive Metabolic Panel (03/08/17 10:41) Labs Laboratory Tests Test 03/08/17 10:45 White Blood Count 8.3 TH/MM3 Red Blood Count 4.63 MIL/MM3 Hemoglobin 14.5 GM/DL Hematocrit 43.7 % Mean Corpuscular Volume 94.5 FL Mean Corpuscular Hemoglobin 31.3 PG Mean Corpuscular Hemoglobin Concent 33.1 % Red Cell Distribution Width 13.8 % Platelet Count 438 TH/MM3 Mean Platelet Volume 7.2 FL Neutrophils (%) (Auto) 62.9 % Lymphocytes (%) (Auto) 24.6 % Monocytes (%) (Auto) 5.9 % Eosinophils (%) (Auto) 2.8 % Basophils (%) (Auto) 3.8 % Neutrophils # (Auto) 5.2 TH/MM3 Lymphocytes # (Auto) 2.0 TH/MM3 Monocytes # (Auto) 0.5 TH/MM3 Eosinophils # (Auto) 0.2 TH/MM3 Basophils # (Auto) 0.3 TH/MM3 CBC Comment DIFF FINAL Differential Comment Blood Urea Nitrogen 12 MG/DL Creatinine 1.10 MG/DL Random Glucose 110 MG/DL Total Protein 7.0 GM/DL Albumin 3.1 GM/DL Calcium Level 8.2 MG/DL Alkaline Phosphatase 159 U/L Aspartate Amino Transf (AST/SGOT) 48 U/L Alanine Aminotransferase (ALT/SGPT) 61 U/L Total Bilirubin 0.3 MG/DL Sodium Level 140 MEQ/L Potassium Level 4.5 MEQ/L Chloride Level 107 MEQ/L Carbon Dioxide Level 25.2 MEQ/L Anion Gap 8 MEQ/L Estimat Glomerular Filtration Rate 67 ML/MIN MDM Medical Decision Making Medical Screen Exam Complete: Yes Emergency Medical Condition: Yes Medical Record Reviewed: Yes Differential Diagnosis Electrolyte abnormality versus anemia versus lab error Narrative Course Patient is a 67-year-old male who comes in because he says he was told his labs were abnormal and he needed to come to the emergency department. He has no complaints at this time. Exam shows no acute abnormalities. CBC and CMP sent. Potassium, sodium, hemoglobin are all within normal limits. Calcium is slightly low at 8.2. Patient advised he could take a supplement. AST is slightly elevated at 48. Patient advised to avoid alcohol. He is advised follow-up with his doctor. Advised to return any time for any worsening symptoms. Diagnosis Primary Impression: Abnormal laboratory test result Patient Instructions: General Instructions, Normal Exam (ED) Additional Instructions: Follow-up with your doctor. Return to the ED as needed for any worsening symptoms. Disposition: 01 DISCHARGE HOME Condition: Stable Katalina Terry MD Mar 08, 2017 11:26
== END 2017-03-08 12:17 | disposition home or self-care (01) ==
LOC: PHED 10:02
DX: M19.90 Unspecified osteoarthritis, unspecified site (principal); I10 Essential (primary) hypertension; E78.00 Pure hypercholesterolemia, unspecified; I11.0 Hypertensive heart disease with heart failure; I50.9 Heart failure, unspecified; I25.10 Atherosclerotic heart disease of native coronary artery without angina pectoris; Z86.73 Personal history of transient ischemic attack (TIA), and cerebral infarction without residual deficits; Z79.82 Long term (current) use of aspirin; Z79.899 Other long term (current) drug therapy
CPT/HCPCS: 80053; 85025; 99283

== ENCOUNTER 2017-07-20 04:19 | Emergency (ER) | payer OTHER ==
[~2017-07-20] VITALS: Ht 170.2 cm; Wt 88.2 kg
[~2017-07-20 04:19] MED LIST changes: -HYDR-3533 PO; +VITA1000 PO
[2017-07-20 04:25] VITALS: BP 135/75; PULSE 105; RESP 16; TEMP 97.7; O2SAT 100
[2017-07-20] MEDS ORDERED: KETOROLAC TROMETHAMINE 60 MG/2 ML (IM) VIAL IM ONE (04:45)
--- NOTE | 2017-07-20 04:47 | PD ---
HPI Chief Complaint: Injury Time Seen by Provider: 04:29 Travel History International Travel<30 days: No Contact w/Intl Traveler<30days: No Traveled to known affect area: No History of Present Illness HPI Patient is a 59-year-old male who says 3 days ago he was weed whacking his yard and his neighbor's yard and then later that evening he felt some discomfort in his right arm that got worse the next night he is taking Tylenol and Motrin with minimal relief and then last night it was so severe he comes to the ER at 4 AM. He took Tylenol at 11:00 last night it did not help. He denies falling he denies trauma he denies overhead reaching it is just that he use the wheeled walker repeatedly for a few hours on 3 days ago PFSH Past Medical History Hx Anticoagulant Therapy: Yes Arthritis: Yes Blood Disorders: Yes (HX OF BEING NON-COMPLIANT WITH COUMADIN THERAPY) Heart Rhythm Problems: No Cancer: No Cardiac Catheterization: Yes (03/2014) Cardiovascular Problems: Yes (htn on meds, [place] , total of 7 stents, bypass 1 vessel) High Cholesterol: Yes Chemotherapy: No Chest Pain: Yes Congestive Heart Failure: Yes Cerebrovascular Accident: Yes (tia) Coronary Artery Disease: Yes Diabetes: No Diminished Hearing: No Endocrine: No Gastrointestinal Disorders: No Genitourinary: No Headaches: Yes Hepatitis: No Hiatal Hernia: No Hypertension: Yes Immune Disorder: No Implanted Vascular Access Dvce: Yes Musculoskeletal: Yes (TENDONITIS bilat hands) Neurologic: Yes (STROKE 2008) Psychiatric: No Reproductive: No Respiratory: No Immunizations Current: Yes Thyroid Disease: No Past Surgical History Abdominal Surgery: No AICD: No Arteriovenous Shunt: No Body Medical Devices: STENTS X 4 TO RCA,chest wires from cabg Cardiac Surgery: Yes (4 STENTS PLACED 03/27,cabg one ves) Coronary Artery Bypass Graft: Yes (X 1 VESSEL 2005 bypass) Ear Surgery: No Endocrine Surgery: No Eye Surgery: No Genitourinary Surgery: No Gynecologic Surgery: No Hysterectomy: No Insulin Pump: No Joint Replacement: No Neurologic Surgery: No Oral Surgery: No Pacemaker: No Thoracic Surgery: No Tonsillectomy: Yes (1968) Other Surgery: Yes (ABCESS REMOVED RIGHT BUTTOCKS X8, right leg surgery for PVD ) Social History Alcohol Use: Yes (BEER) Tobacco Use: No (QUIT 04/02/14 SMOKED CIGS) Substance Use: No Allergies-Medications (Allergen,Severity, Reaction): Coded Allergies: No Known Allergies (Unverified , 07/20/17) Reported Meds & Prescriptions Reported Meds & Active Scripts Active Bryan (Hydrocodone-Acetaminophen) 5 Mg-325 Mg Tab 1 Tab PO Q4H PRN Ibuprofen 600 Mg Tab 600 Mg PO Q6H PRN Reported Aspirin 81 Mg Chew 81 Mg CHEW DAILY Metoprolol Tartrate 100 Mg Tab 50 Mg PO BID Review of Systems Except as stated in HPI: all other systems reviewed are Neg Musculoskeletal: Positive: Myalgias (right shoulder tenderness) Physical Exam Narrative GENERAL: awake alert non toxic sloghtly diaphoretic SKIN: Warm and dry. HEAD: Atraumatic. Normocephalic. EYES: Pupils equal and round. No scleral icterus. No injection or drainage. ENT: No nasal bleeding or discharge. Mucous membranes pink and moist. NECK: Trachea midline. No JVD. CARDIOVASCULAR: Regular rate and rhythm. RESPIRATORY: No accessory muscle use. Clear to auscultation. Breath sounds equal bilaterally. GASTROINTESTINAL: Abdomen soft, non-tender, nondistended. Hepatic and splenic margins not palpable. MUSCULOSKELETAL: Extremities Right soulder pain reproducible with motion , unable to lift beyond 90 degrees NEUROLOGICAL: Awake and alert. No obvious cranial nerve deficits. Motor grossly within normal limits. Five out of 5 muscle strength in the arms and legs. Normal speech. PSYCHIATRIC: Appropriate mood and affect; insight and judgment normal. Data Data Last Documented VS Orders Orders Shoulder, Complete (>2vws) (07/20/17 ) Ketorolac Inj (Toradol Inj) (07/20/17 04:45) Sling Cradle Arm (07/20/17 ) Ed Discharge Order (07/20/17 05:56) Sling Cradle Arm (07/20/17 ) [facility] Medical Decision Making Medical Screen Exam Complete: Yes Emergency Medical Condition: Yes Differential Diagnosis bursitis vs shoulder dislocation vs rotator cuff injury , vs arthritis, vs muscle spasm from overusage. Narrative Course xrays negative for obvious emergent pathology , I M toradol and d/c with ibuprofen and few pain pills for break through pain Diagnosis Primary Impression: Right shoulder strain Qualified Codes: S46.911A - Strain of unspecified muscle, fascia and tendon at shoulder and upper arm level, right arm, initial encounter Patient Instructions: General Instructions, Shoulder Bursitis (ED) Scripts Hydrocodone-Acetaminophen (Bryan) 5 Mg-325 Mg Tab 1 TAB PO Q4H Y for PAIN, #10 TAB 0 Refills Prov: Emanuel Newman MD 07/20/17 Ibuprofen (Ibuprofen) 600 Mg Tab 600 MG PO Q6H Y for Pain/Inflammation, #40 TAB 0 Refills Prov: Emanuel Newman MD 07/20/17 Disposition: 01 DISCHARGE HOME Condition: Good Emanuel Newman MD July 20, 2017 04:47
--- NOTE | 2017-07-20 05:08 | RADRPT ---
EXAM DATE/TIME: 07/20/2017 04:33 [place] COMPARISON: No previous studies available for comparison. INDICATIONS : Right shoulder pain for 2 days after patient strained arm doing yardwork MEDICAL HISTORY : None. SURGICAL HISTORY : None. ENCOUNTER: Initial ACUITY: 2 days PAIN SCORE: 7/10 LOCATION: Right entire shoulder FINDINGS: Multiple view examination of the right shoulder demonstrates no evidence of fracture or dislocation. The glenohumeral and acromioclavicular joints are maintained. There is normal range of motion betwe en internal and external rotation. Bony mineralization is normal. The patient is noted to be status post median sternotomy. 2 the sternal wires are broken. CONCLUSION: Negative exam. Gabriel Hernández MD on July 20, 2017 at 5:06 Board Certified Radiologist. This report was verified electronically.
[2017-07-20] MEDS ORDERED: IBUP-232 PO (05:16)
[2017-07-20] MEDS ORDERED: DIAZ5 PO (05:16)
[2017-07-20] MEDS ORDERED: NORC5TAB PO (06:01)
[2017-07-20 06:10] VITALS: BP 138/76
[2017-07-20 06:15] VITALS: RESP 16
== END 2017-07-20 06:14 | disposition home or self-care (01) ==
LOC: PHED 04:19
DX: S46.911A Strain of unspecified muscle, fascia and tendon at shoulder and upper arm level, right arm, initial encounter (principal); I11.0 Hypertensive heart disease with heart failure; I50.9 Heart failure, unspecified; I25.10 Atherosclerotic heart disease of native coronary artery without angina pectoris; E78.00 Pure hypercholesterolemia, unspecified; Y93.H2 Activity, gardening and landscaping; Z86.73 Personal history of transient ischemic attack (TIA), and cerebral infarction without residual deficits; Z87.891 Personal history of nicotine dependence; Z79.82 Long term (current) use of aspirin
CPT/HCPCS: 73030; 96372; 99283; J1885

== ENCOUNTER 2018-04-28 09:58 | Inpatient (IN) ==
--- NOTE | 2018-04-28 10:37 | ED ---
HPI General Chief complaint: Neuro Symptoms/Deficit Stated complaint: Neck Pain Time Seen by Provider: 04/28/18 10:21 Source: patient Mode of arrival: ambulatory Limitations: other (poor historian) History of Present Illness HPI narrative: 68-year-old old male presents with 1 week history of chest pain and upper back pain over the past week. He denies any active chest pain currently. He states since he has had numbness and weakness to his right hand denies any trauma or other complaints other than intermittent left- sided neck pain. 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 He states he thinks his last stress test was a couple years ago but he was supposed to have one 1 week ago but could not get in. He denies any other concurrent complaints. Quality of pain is sharp. Severity is moderate. Pain is worse with movement. He denies other modifying factors. Related Data Home Medications Medication Instructions Recorded Confirmed amlodipine 5 mg PO DAILY 04/28/18 04/28/18 aspirin [Aspirin Low Dose] 81 mg PO DAILY 04/28/18 04/28/18 atorvastatin 80 mg PO DAILY 04/28/18 04/28/18 clopidogrel 75 mg PO DAILY 04/28/18 04/28/18 isosorbide mononitrate 30 mg PO DAILY 04/28/18 04/28/18 lisinopril 5 mg PO DAILY 04/28/18 04/28/18 metoprolol tartrate 100 mg PO BID 04/28/18 04/28/18 Allergies Allergy/AdvReac Type Severity Reaction Status Date / Time No Known Allergies Allergy Unverified 07/20/17 05:01 Review of Systems ROS: all other systems reviewed are negative [facility] History Provided By: Patient (Hypertension, coronary artery disease, coronary bypass surgery) Medical History Medical History Chronic pain (Acute) Hypertension (Acute) Myocardial infarct (Acute) Surgical History Surgical History Hx of CABG (Acute) Social History Social History Substance History: No History of Abuse Second Hand Smoke Exposure: No Smoking Status: Never smoker How Often Do You Have a Drink Containing Alcohol: Monthly or less Recent Travel in [facility] within the Last 8 Weeks: No Recent Out of Country Travel within the Last 8 Weeks: No Exam Narrative Exam Narrative: GENERAL: 68-year-old male who appears ill SKIN: Focused skin assessment diaphoretic at rest HEAD: Atraumatic. Normocephalic. EYES: Pupils equal and round. No scleral icterus. No injection or drainage. ENT: No nasal bleeding or discharge. Mucous membranes pink and moist. NECK: Trachea midline. No JVD. Tender to left trapezius, no midline pain CARDIOVASCULAR: Regular rate and rhythm. No murmur appreciated. RESPIRATORY: No accessory muscle use. Clear to auscultation. Breath sounds equal bilaterally at apices. GASTROINTESTINAL: Abdomen soft, non-tender, nondistended. MUSCULOSKELETAL: No obvious deformities. No clubbing. No cyanosis. No edema. NEUROLOGICAL: Awake and alert. Decreased grasp on the right but difficult to assess if secondary to pain or weakness otherwise nonfocal other than states also feels tingly to right arm. Normal speech. Course Reevaluation(s) Reevaluation #1: Patient's troponin is significantly elevated as well as a CK- MB percentage. Awaiting CTA chest to rule out dissection and if this is normal will place patient on heparin drip and dose with aspirin and discuss with cardiology. No active chest pain currently Reevaluation #2: CTA shows no dissection, will dose with aspirin nitroglycerin. Patient updated and still pain-free. Agrees to plan of care Consultations Consultation #1: dr garcia agrees to heparin and admit Consultation #2: dr chou agrees to admit Initial Documented Vital Signs Temperature 98.1 F 04/28/18 10:16 Pulse Rate 82 04/28/18 10:16 Blood Pressure 107/55 L 04/28/18 10:16 Pulse Oximetry 96 04/28/18 10:16 Last Documented Vital Signs Temperature 98.1 F 04/28/18 10:28 Pulse Rate 82 04/28/18 10:28 Respiratory Rate 14 04/28/18 10:28 Blood Pressure 107/55 L 04/28/18 10:28 Pulse Oximetry 96 04/28/18 10:28 Medical Decision Making [facility] Narrative Medical decision making narrative: We will check blood work, x-ray, CT imaging and reevaluate. Given chest pain with neurologic symptoms he will also need rule out for dissection. EKG shows concerning ST segment changes but these are on prior EKG although a little more pronounced but patient has no active chest pain currently. Medical Screen Exam Complete: Yes Emergency Medical Condition: Yes Differential Diagnosis Differential Diagnosis: Dissection, musculoskeletal, fracture, CT Lab Data Lab results reviewed: Yes I reviewed the patient's lab results. Result diagrams: 04/28/18 10:30 04/28/18 10:30 Lab Results 04/28/18 04/28/18 04/28/18 Range/Units 10:19 10:30 10:30 WBC 17.6 H (4.0-11.0) th/mm3 RBC 4.04 L (4.50-5.90) mil/mm3 Hgb 13.6 (13.0-17.0) gm/dL Hct 39.8 (39.0-51.0) % MCV 98.5 (80.0-100.0) fL MCH 33.6 (27.0-34.0) pg MCHC 34.2 (32.0-36.0) % RDW 13.6 (11.6-17.2) % Plt Count 333 (150-450) th/mm3 MPV 7.4 (7.0-11.0) fL Neut % (Auto) 82.7 H (16.0-70.0) % Lymph % (Auto) 6.6 L (9.0-44.0) % [place] % (Auto) 9.8 H (0.0-8.0) % Eos % (Auto) 0.1 (0.0-4.0) % Baso % (Auto) 0.8 (0.0-2.0) % Neut # (Auto) 14.5 H (1.8-7.7) th/mm3 Lymph # (Auto) 1.2 (1.0-4.8) th/mm3 [place] # (Auto) 1.7 H (0.0-0.9) th/mm3 Eos # (Auto) 0.0 (0.0-0.4) th/mm3 Baso # (Auto) 0.1 (0.0-0.2) th/mm3 WBC Differential . Differential Comment Auto diff final PT (9.8-11.6) sec INR Ratio APTT (23.4-31.7) sec Sodium (136-145) meq/L Potassium (3.5-5.1) meq/L Chloride (98-107) meq/L Carbon Dioxide (21.0-32.0) meq/L Anion Gap (5-15) meq/L BUN (7-18) mg/dL Creatinine (0.60-1.30) mg/dL Estimated GFR (>89) mL/min POC Glucose 109 (68-110) mg/dl Random Glucose (74-106) mg/dL Lactic Acid (0.4-2.0) mmol/L Calcium (8.5-10.1) mg/dL Magnesium (1.5-2.5) mg/dL Total Bilirubin (0.2-1.0) mg/dL AST (15-37) U/L ALT (12-78) U/L Alkaline Phosphatase (45-117) U/L Total Creatine Kinase (39-308) U/L CK-MB (CK-2) (0.5-3.6) ng/mL CK-MB (CK-2) % (0.0-4.0) % Troponin I (0.02-0.05) ng/mL B-Natriuretic Peptide 164 H (0-100) pg/mL Total Protein (6.4-8.2) g/dL Albumin (3.4-5.0) g/dL Lipase (73-393) U/L 04/28/18 04/28/18 04/28/18 Range/Units 10:30 10:30 11:05 WBC (4.0-11.0) th/mm3 RBC (4.50-5.90) mil/mm3 Hgb (13.0-17.0) gm/dL Hct (39.0-51.0) % MCV (80.0-100.0) fL MCH (27.0-34.0) pg MCHC (32.0-36.0) % RDW (11.6-17.2) % Plt Count (150-450) th/mm3 MPV (7.0-11.0) fL Neut % (Auto) (16.0-70.0) % Lymph % (Auto) (9.0-44.0) % [place] % (Auto) (0.0-8.0) % Eos % (Auto) (0.0-4.0) % Baso % (Auto) (0.0-2.0) % Neut # (Auto) (1.8-7.7) th/mm3 Lymph # (Auto) (1.0-4.8) th/mm3 [place] # (Auto) (0.0-0.9) th/mm3 Eos # (Auto) (0.0-0.4) th/mm3 Baso # (Auto) (0.0-0.2) th/mm3 WBC Differential Differential Comment PT 10.0 (9.8-11.6) sec INR 1.0 Ratio APTT 36.6 H (23.4-31.7) sec Sodium 135 L (136-145) meq/L Potassium 4.4 (3.5-5.1) meq/L Chloride 105 (98-107) meq/L Carbon Dioxide 19.9 L (21.0-32.0) meq/L Anion Gap 10 (5-15) meq/L BUN 12 (7-18) mg/dL Creatinine 1.14 (0.60-1.30) mg/dL Estimated GFR 64 L (>89) mL/min POC Glucose (68-110) mg/dl Random Glucose 100 (74-106) mg/dL Lactic Acid 1.2 (0.4-2.0) mmol/L Calcium 8.6 (8.5-10.1) mg/dL Magnesium 2.3 (1.5-2.5) mg/dL Total Bilirubin 0.8 (0.2-1.0) mg/dL AST 98 H (15-37) U/L ALT 34 (12-78) U/L Alkaline Phosphatase 124 H (45-117) U/L Total Creatine Kinase 1426 H (39-308) U/L CK-MB (CK-2) 70.0 H (0.5-3.6) ng/mL CK-MB (CK-2) % 4.9 H* (0.0-4.0) % Troponin I 7.53 H* (0.02-0.05) ng/mL B-Natriuretic Peptide (0-100) pg/mL Total Protein 7.7 (6.4-8.2) g/dL Albumin 2.9 L (3.4-5.0) g/dL Lipase 35 L (73-393) U/L Imaging Data Attestation: I personally reviewed and interpreted this imaging study as follows : Radiologist's impression: Cervical Spine CT 04/28/18 10:27 CONCLUSION: 1. Degenerative changes are seen predominantly at C5-6. 2. No fracture or subluxation. Head CT 04/28/18 10:27 CONCLUSION: 1. 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 2. Cortical atrophy. . . Thoracic Aorta CT 04/28/18 10:27 CONCLUSION: 1. Groundglass consolidation in the upper lobes greater right upper lobe. 2. Subcentimeter right lung nodules. 3. No thoracic or abdominal aortic aneurysm/dissection. 4. Polypoid lesion within the upper trachea anteriorly. Chest X-Ray 04/28/18 10:28 CONCLUSION: No acute cardiopulmonary disease Discharge Plan Discharge Disposition Patient Disposition: ED Admit(ED Internal Use Only) Discharge Order Discharge Orders: ED Use Only Admit Order (Routine); Ordered 04/28/18 Ordered By: Patricia Fowler Discharge Details Diagnosis: Non-ST elevation CT (NSTEMI), Right hand weakness Physicians Team ED Provider: Patricia Fowler Primary Care Provider: Iraida Espinal Rxs /Orders / Referrals /Forms Prescriptions: No Action atorvastatin 80 mg Tablet 80 mg PO DAILY RF: 0 metoprolol tartrate 100 mg Tablet 100 mg PO BID RF: 0 isosorbide mononitrate 30 mg Tablet Extended Release 24 Hr 30 mg PO DAILY RF: 0 clopidogrel 75 mg Tablet 75 mg PO DAILY RF: 0 amlodipine 5 mg Tablet 5 mg PO DAILY RF: 0 aspirin [Aspirin Low Dose] 81 mg Tablet,Delayed Release (Dr/Ec) 81 mg PO DAILY RF: 0 lisinopril 5 mg Tablet 5 mg PO DAILY RF: 0 Status ED Status: Admitted Patient
[2018-04-28 10:45] LABS: Baso # (Auto) 0.1 th/mm3 (0.0-0.2); Baso % (Auto) 0.8 % (0.0-2.0); Eos % (Auto) 0.1 % (0.0-4.0); Hematocrit 39.8 % (39.0-51.0); Hemoglobin 13.6 gm/dL (13.0-17.0); Lymph # (Auto) 1.2 th/mm3 (1.0-4.8); Lymph % (Auto) 6.6 % (9.0-44.0); Mean Corpuscular HGB Conc 34.2 % (32.0-36.0); Mean Corpuscular Hemoglobin 33.6 pg (27.0-34.0); Mean Corpuscular Volume 98.5 fL (80.0-100.0); Mean Platelet Volume 7.4 fL (7.0-11.0); Mono # (Auto) 1.7 th/mm3 (0.0-0.9); Mono % (Auto) 9.8 % (0.0-8.0); Neut # (Auto) 14.5 th/mm3 (1.8-7.7); Neut % (Auto) 82.7 % (16.0-70.0); Platelet Count 333 th/mm3 (150-450); Red Blood Count 4.04 mil/mm3 (4.50-5.90); Red Cell Distribution Width 13.6 % (11.6-17.2); White Blood Count 17.6 th/mm3 (4.0-11.0)
[2018-04-28] MEDS ORDERED: Sodium Chlor 0.9% Inj 500 ML IV.SIG SCH (11:00)
[2018-04-28 11:08] LABS: Activated Partial Thrombo Time 36.6 sec (23.4-31.7)
--- NOTE | 2018-04-28 11:12 | XR ---
EXAM DATE: 04/28/2018 11:05 AM EST AGE/SEX: 68 years / Male INDICATIONS: Right chest pain. CLINICAL DATA: This is the patient's initial encounter. Patient reports that signs and symptoms have been present for 3 days and indicates a pain score of 4/10. MEDICAL/SURGICAL HISTORY: Hypertension. CABG. COMPARISON: [facility], CHEST, AP & LAT, 09/18/2016. . FINDINGS: A single AP view of the chest demonstrates the lungs to be symmetrically aerated without evidence of mass, infiltrate or effusion. Status post CABG. The cardiomediastinal contours are unremarkable. Oss eous structures are intact. CONCLUSION: No acute cardiopulmonary disease Electronically signed by: Dangelo Walters MD Board Certified Radiologist 04/28/2018 11:11 AM EST
[2018-04-28 11:18] LABS: Albumin 2.9 g/dL (3.4-5.0); Anion Gap 10 meq/L (5-15); Aspartate Aminotransferase 98 U/L (15-37); Blood Urea Nitrogen 12 mg/dL (7-18); Calcium 8.6 mg/dL (8.5-10.1); Carbon Dioxide 19.9 meq/L (21.0-32.0); Chloride 105 meq/L (98-107); Glomerular Filtration Rate 64 mL/min (>89); Glucose,Random 100 mg/dL (74-106); Lipase 35 U/L (73-393); Magnesium 2.3 mg/dL (1.5-2.5); Potassium 4.4 meq/L (3.5-5.1); Sodium 135 meq/L (136-145)
[2018-04-28 11:32] LABS: Alanine Aminotransferase 34 U/L (12-78); Alkaline Phosphatase 124 U/L (45-117); Creatine Kinase 1426 U/L (39-308); Total Protein 7.7 g/dL (6.4-8.2)
[2018-04-28 11:41] LABS: Troponin I 7.53 ng/mL (0.02-0.05)
--- NOTE | 2018-04-28 12:18 | CT ---
EXAM DATE: 04/28/2018 12:11 PM EST AGE/SEX: 68 years / Male INDICATIONS: Weakness. CLINICAL DATA: This is the patient's initial encounter. Patient reports that signs and symptoms have been present for 1 day and indicates a pain score of 4/10. MEDICAL/SURGICAL HISTORY: Myocardial infarction. Hypertension. CABG. RADIATION DOSE: 56.35 CTDI (mGy) COMPARISON: No prior exams available for comparison. TECHNIQUE: CT of the head without contrast. Using automated exposure control and adjustment of the mA and/or kV according to patient size, radiation dose was kept as low as reasonably achievable to ob tain optimal diagnostic quality images. DICOM format image data is available electronically for revi ew and comparison. FINDINGS: Cerebrum: The ventricles are normal for age. Cortical atrophy. No evidence of midline shift, mass le keira, hemorrhage or acute infarction. No extraaxial fluid collections are seen. Posterior Fossa: Left cerebellar atrophy possibly due to old infarct. Brainstem appears intact. The 4th ventricle is midline. The cerebellopontine angle is unremarkable. Extracranial: The visualized portion of the orbits is intact. Skull: The calvaria is intact. No evidence of skull fracture. CONCLUSION: 1. 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 2. Cortical atrophy. . . Electronically signed by: Dangelo Walters MD Board Certified Radiologist 04/28/2018 12:17 PM EST
--- NOTE | 2018-04-28 12:20 | CT ---
EXAM DATE: 04/28/2018 12:15 PM EST AGE/SEX: 68 years / Male INDICATIONS: Neck pain and weakness. CLINICAL DATA: This is the patient's initial encounter. Patient reports that signs and symptoms have been present for 1 day and indicates a pain score of 5/10. MEDICAL/SURGICAL HISTORY: Hypertension. Myocardial infarction. CABG. RADIATION DOSE: 27.23 CTDI (mGy) COMPARISON: [facility], CT CERVICAL SPINE W/O CONTRAST, 03/05/2016. . TECHNIQUE: Contiguous axial images were obtained using helical multirow detector technique. The vol umetric data was post-processed with multiplanar reconstruction in oblique axial, sagittal, and coron al planes. Using automated exposure control and adjustment of the mA and/or kV according to patient s ize, radiation dose was kept as low as reasonably achievable to obtain optimal diagnostic quality daniel ges. DICOM format image data is available electronically for review and comparison. FINDINGS: Vertebrae: Normal vertebral body height. Degenerative changes around C5-6. Scattered degenerative ch anges. Uncovertebral spurring at multiple levels. Alignment: Straightening without spondylolisthesis. C2-3: The bony spinal canal is normal in size. No evidence of disc bulge or herniation. The neural foramina are bilaterally patent. C3-4: The bony spinal canal is normal in size. No evidence of disc bulge or herniation. Mild bilate ral neural foraminal narrowing. C4-5: The bony spinal canal is normal in size. No evidence of disc bulge or herniation. Uncovertebr al spurring causes moderate left and mild right neural foraminal narrowing.. C5-6: Small posterior disc osteophyte complex and bilateral mild neural foraminal encroachment. C6-7: The bony spinal canal is normal in size. No evidence of disc bulge or herniation. The neural foramina are bilaterally patent. C7-T1: The bony spinal canal is normal in size. No evidence of disc bulge or herniation. The neura l foramina are bilaterally patent. CONCLUSION: 1. Degenerative changes are seen predominantly at C5-6. 2. No fracture or subluxation. Electronically signed by: Dangelo Walters MD Board Certified Radiologist 04/28/2018 12:19 PM EST
[2018-04-28 12:33] LABS: CKMB Percent 4.9 % (0.0-4.0)
--- NOTE | 2018-04-28 12:45 | CT ---
EXAM DATE: 04/28/2018 12:38 PM EST AGE/SEX: 68 years / Male INDICATIONS: Chest pain for one week. CLINICAL DATA: This is the patient's initial encounter. Patient reports that signs and symptoms have been present for 1 week and indicates a pain score of 7/10. MEDICAL/SURGICAL HISTORY: Myocardial infarction. Hypertension. CABG. RADIATION DOSE: 8.15 CTDI (mGy) COMPARISON: [facility], CTA AORTA W/ RUNOFF, 08/23/2017. [facility], CHEST 1V SINGLE AP, 04/28/2018. [facility], CTA CHEST, 06/30/2016. . TECHNIQUE: Volumetric scanning was performed using a multi-row detector CT scanner during bolus infu keira of 100 ml Omnipaque 350 (iohexol) nonionic water-soluble contrast as a single exam dose. The d lubna was post processed with a variety of visualization algorithms including full volume maximum inten sity projection, multi-planar sliding thin slab reformation, curved planar reformation, and surface r endering techniques. Using automated exposure control and adjustment of the mA and/or kV according t o patient size, radiation dose was kept as low as reasonably achievable to obtain optimal diagnostic quality images. DICOM format image data is available electronically for review and comparison. FINDINGS: Lungs: Groundglass consolidation in the right upper lobe and to a lesser degree in the left upper lo be anteriorly. Minimal bibasilar atelectasis. 5 mm nodule within the right upper lobe and right middl e lobe. Polypoid lesion within the trachea just below the larynx. Mediastinum: No abnormally enlarged lymph nodes by CT criteria. No axillary or hilar abnormalities a re identified. Status post CABG. Abdomen: The spleen are free of focal defects. Liver is slightly nodular. The gallbladder and pancre as demonstrate no abnormality. The adrenal glands are normal. The kidneys demonstrate no evidence of solid renal mass or hydronephrosis. No free fluid or abdominal masses are identified. No para-aortic adenopathy is seen. Pelvis: No evidence of free fluid or pelvic mass. No abnormally enlarged inguinal or retroperitoneal lymph nodes are present. The bladder is unremarkable. Thoracic Aorta: The thoracic aortic root is normal with normal aberrant right subclavian artery cour sing posterior to the esophagus. There is no evidence of aneurysm or dissection. Abdominal Aorta: The aorta is normal in caliber without aneurysm or dissection. The renal arteries are patent bilaterally. The proximal celiac and superior mesenteric arteries are patent and normal i n diameter. Pelvic Vessels: The internal iliac and external iliac vessels are patent without aneurysm or stenosi s. CONCLUSION: 1. Groundglass consolidation in the upper lobes greater right upper lobe. 2. Subcentimeter right lung nodules. 3. No thoracic or abdominal aortic aneurysm/dissection. 4. Polypoid lesion within the upper trachea anteriorly. Electronically signed by: Dangelo Walters MD Board Certified Radiologist 04/28/2018 12:44 PM EST
[2018-04-28] MEDS ORDERED: Heparin 10,000 UNITS/10 ML Vial (for IV use) IV.PUSH STA (12:51)
[2018-04-28] MEDS ORDERED: Aspirin 325 MG Tablet PO ONE (12:51)
--- NOTE | 2018-04-28 12:55 | ECG ---
Date Performed: 04/28/2018 Time Performed: 10:22:56 PTAGE: 68 years EKG: Sinus rhythm MARKED LEFT AXIS DEVIATION RIGHT BUNDLE BRANCH BLOCK Nonspecific ST and T wave abnormalities ABNORMA L ECG No significant change from prior electrocardiogram. PREVIOUS TRACING : 09/18/2016 02.20 DOCTOR: Vinay Rooney Interpretating Date/Time 04/28/2018 12:53:01
[2018-04-28] MEDS: Heparin Drip 25,000 UNIT/250 ML BAG IV.CONT PRN (13:07)
--- NOTE | 2018-04-28 15:54 | MB ---
cc: Ibrahima Kirkpatrick MD DATE: 04/28/2018 REASON FOR CONSULTATION: Acute [id number] myocardial infarction. HISTORY OF PRESENT ILLNESS: The patient is a 68-year-old white male, followed in our office by Dr. Jin Wilson, with a history of coronary artery disease, peripheral vascular disease, transient ischemic attack, hypertension, who presented to the hospital mainly with complaints of back pain and posterior neck pain. Six days ago he developed pain in his neck area associated with swelling and stiffness of both of his hands. About 2 days ago, he developed intermittent right subscapular pain described as "sharp," usually lasting a few minutes. He cannot recall any anterior chest discomfort. Cardiac enzymes have been checked and found to be abnormal. The patient denies shortness of breath, pleurisy, lightheadedness, syncope, near syncope, palpitations, pedal edema, paroxysmal nocturnal dyspnea. PAST MEDICAL HISTORY: 1. Coronary artery disease status post bypass surgery 2004 with a left internal mammary artery to the LAD, status post stent x4 of the right coronary artery using 4 Resolute stents 04/02/2014. 2. History of peripheral vascular disease with history of right femoral popliteal bypass. 3. Transient ischemic attack approximately 2006. 4. Hypertension. 5. Hyperlipidemia. CARDIAC MEDICATIONS AT HOME: 1. Amlodipine 5 mg daily. 2. Clopidogrel 75 mg daily. 3. Imdur 30 mg daily. 4. Lisinopril 5 mg daily. 5. Metoprolol tartrate 25 mg b.i.d. 6. Aspirin 81 mg daily. 7. Atorvastatin 40 mg at bedtime. ALLERGIES: NO KNOWN DRUG ALLERGIES. FAMILY HISTORY: Noncontributory. SOCIAL HISTORY: The patient smokes occasional cigarettes. He denies alcohol abuse. REVIEW OF SYSTEMS: As in the history of present illness, otherwise negative or noncontributory. He also denies headache, abdominal pain, melena, dyspepsia, bright red blood per rectum, flu symptoms, fevers. PHYSICAL EXAMINATION: VITAL SIGNS: His blood pressure 96/58 with a pulse of 80, respirations 16. GENERAL: He is a well-developed, well-nourished white male, in no acute distress. NECK: Jugular venous pressure is normal. Carotid pulses are 2+ bilaterally and without bruits. CHEST: Reveals clear lungs daniels. CARDIAC: He has a regular rhythm and rate without S3, S4, or murmur. ABDOMEN: He has a soft, nontender abdomen. Bowel sounds are present. There is no definite hepatosplenomegaly. EXTREMITIES: Reveals no clubbing, cyanosis, or edema. LABORATORY DATA: EKG shows sinus rhythm, left axis deviation, right bundle branch block, anterolateral ST and T-wave abnormalities, consider ischemia. Chest x-ray shows no acute disease. LABORATORY DATA: Includes WBC 17.6, hemoglobin 13.6, platelets 333, potassium 4.4, BUN 12, creatinine 1.14. CK 1426, with 4.9% MB fraction. Troponin 21.50. IMPRESSION: Acute non-ST elevation myocardial infarction in this 68-year-old white male with a history of coronary artery disease status post bypass surgery 2004, status post multiple stents of the right coronary 2014, peripheral vascular disease, hypertension, hyperlipidemia. The patient actually denies any recent chest discomforts. His intermittent right subscapular pain may be an anginal equivalent. EKG does show ischemic anterolateral ST and T-wave abnormalities. At this time, he denies any chest or back pain. There is no definite evidence for acute congestive heart failure. RECOMMENDATIONS: 1. Continue benito and JACE inhibitor therapy as his blood pressures tolerate. 2. Continue his usual statin. 3. Agree with heparin drip. 4. Add topical nitrates. 5. Probable cardiac catheterization this coming Monday by Dr. Jin Wilson. MD VIDA Ogden/margot , 03:27 PM , 03:35 PM SUSAN
--- NOTE | 2018-04-28 17:19 | P.HPIM ---
History of Present Illness Primary Care Physician: Iraida Espinal MD History of Present Illness: 68-year-old white male being admitted for chest pain and NST GENNA. Patient was in his [facility] until about a week or so ago when he began experiencing periodic morning chest pains. He was originally planning to get an outpatient stress test. However for the last 3 days he has been having more consistent chest pains that would last for a few minutes in the morning and then they would go away. Says with some repositioning the pains would go away, never came back with ambulation or exertion. Denies any nausea vomiting. Reports being compliant with all his medications including his blood thinners. Pain at its worse this morning was 8/10, decided come to the ED. He also reports having some associated bilateral upper extremity swelling and pain but no weakness, definitely no focal weakness. Denies any headaches. In the ED he had an EKG done which adamantly reviewed did show some T wave inversions in the anterior leads but this seemed to also be present on the one prior to this a few months ago. His troponin was elevated at a level of 7. He also had a CTA done of his thoracic aorta which showed subcentimeter right lung nodules, ground glass opacities in the right upper lobes. He was given aspirin and started on a heparin drip. CT spine was also done which showed degenerative changes. Cardiology was consulted. Inpatient Certification Inpatient Certification: I certify that the inpatient services were ordered in accordance with Medicare regulations governing the order. This includes certification that hospital inpatient services are reasonable and necessary and in the case of services not specified as inpatient-only under 42 CFR 419.22(n), that they are appropriately provided as inpatient services in accordance to with the 2-midnight benchmark under 43 CFR 412.3(e) Estimated Total Length of Stay (Days): 2 Plans for Post Hospital Care: Not yet determined Review of Systems Review of Systems: all other systems reviewed are negative [facility] Medical History Medical History Chronic pain (Acute) Hypertension (Acute) Myocardial infarct (Acute) Surgical History Surgical History Hx of CABG (Acute) Social History Social History Substance History: No History of Abuse Second Hand Smoke Exposure: No Smoking Status: Heavy tobacco smoker Tobacco Type: Cigarettes How Often Do You Have a Drink Containing Alcohol: Monthly or less Recent Travel in [facility] within the Last 8 Weeks: No Recent Out of Country Travel within the Last 8 Weeks: No Immunization History Tetanus Immunization: <5 Years Hx Influenza Vaccine This Season: No Medications and Allergies Allergies Allergy/AdvReac Type Severity Reaction Status Date / Time No Known Allergies Allergy Unverified 07/20/17 05:01 Home Medications Medication Instructions Recorded Confirmed Type amlodipine 5 mg PO DAILY 04/28/18 04/28/18 History aspirin [Aspirin Low Dose] 81 mg PO DAILY 04/28/18 04/28/18 History atorvastatin 80 mg PO DAILY 04/28/18 04/28/18 History clopidogrel 75 mg PO DAILY 04/28/18 04/28/18 History isosorbide mononitrate 30 mg PO DAILY 04/28/18 04/28/18 History lisinopril 5 mg PO DAILY 04/28/18 04/28/18 History metoprolol tartrate 100 mg PO BID 04/28/18 04/28/18 History Active Medications: Active Medications Atorvastatin Calcium (Lipitor) 80 mg PO DAILY [place] Clopidogrel Bisulfate (Plavix) 75 mg PO DAILY [facility] Heparin Sodium/Dextrose (Heparin/D5w 25,000 U/250 Ml) 25,000 unit in 250 mls @ 0 mls/hr IV.CONT TITRATE PRN; Protocol PRN Reason: Per Protocol Last Admin: 04/28/18 13:07 Dose: 980 units/hr, 9.8 mls/hr Metoprolol Tartrate (Lopressor) 100 mg PO BID [facility] Nitroglycerin (Nitro-Bid 2% Oint) 0.5 inch TOPICAL Q6HR [place] Sodium Chloride (Ns Flush) 2 ml IV.FLUSH BID [place] Sodium Chloride (Ns Flush) 2 ml IV.FLUSH PRN PRN PRN Reason: FLUSH AFTER USING IV ACCESS Physical Exam Vital signs: Vital Signs 04/28/18 10:16 04/28/18 10:28 04/28/18 13:00 Temperature 98.1 F 98.1 F Pulse Rate 82 82 82 Respiratory Rate 14 18 Blood Pressure 107/55 L 107/55 L 103/66 Pulse Oximetry 96 96 97 04/28/18 14:00 04/28/18 15:00 04/28/18 16:16 Temperature 99 F Pulse Rate 80 78 81 Respiratory Rate 16 17 16 Blood Pressure 96/58 L 108/63 106/62 Pulse Oximetry 97 100 96 Intake & Output 04/27/18 04/28/18 04/28/18 18:59 06:59 18:59 Intake Total 500 / 500 Balance 500 / 500 Weight 82.1 kg Intake: IV 500 / 500 NS Inj 500 ML @ 1000 mls/hr IV. 500 / 500 SIG BOLUS [place] Rx#:[id number] Other: Weight On Admission 82.1 kg Narrative: VS: afebrile GENERAL: Awake alert, no acute distress SKIN: Warm and dry. EYES: Normocephalic, age-matched ENT: No nasal bleeding or discharge. Mucous membranes pink and moist. CARDIOVASCULAR: Regular rate and rhythm. no murmurs RESPIRATORY: No accessory muscle use. Clear to auscultation. Breath sounds equal bilaterally. GASTROINTESTINAL: Abdomen soft, nondistended Extremities: No clubbing, cyanosis, or edema. No obvious deformities. MUSCULOSKELETAL: adequate muscle bulk and tone for age and habitus NEUROLOGICAL: Awake and alert. No obvious cranial nerve deficits. No facial droop nor slurred speech noted. PSYCHIATRIC: Appropriate mood and affect; insight and judgment normal. Results Labs CBC & Chem 7: 04/28/18 10:30 04/28/18 10:30 Imaging Impressions Cervical Spine CT 04/28/18 10:27 CONCLUSION: 1. Degenerative changes are seen predominantly at C5-6. 2. No fracture or subluxation. Head CT 04/28/18 10:27 CONCLUSION: 1. 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 2. Cortical atrophy. . . Thoracic Aorta CT 04/28/18 10:27 CONCLUSION: 1. Groundglass consolidation in the upper lobes greater right upper lobe. 2. Subcentimeter right lung nodules. 3. No thoracic or abdominal aortic aneurysm/dissection. 4. Polypoid lesion within the upper trachea anteriorly. Chest X-Ray 04/28/18 10:28 CONCLUSION: No acute cardiopulmonary disease Caprini VTE Risk Assessment Caprini VTE Risk Assessment: Moderate/High Risk (score >= 2) Caprini Risk Assessment Model: Point Value = 1 Point Value = 2 Point Value = 3 Point Value = 5 Age 41-60 Minor surgery BMI > 25 kg/m2 Swollen legs Varicose veins or History of unexplained or recurrent spontaneous Oral contraceptives or hormone replacement Sepsis (< 1 month) Serious lung disease, including pneumonia (< 1 month) Abnormal pulmonary function Acute myocardial infarction Congestive heart failure (< 1 month) History of inflammatory bowel disease Medical patient at bed rest Age 61-74 Arthroscopic surgery Major open surgery (> 45 min) Laparoscopic surgery (> 45 min) Malignancy Confined to bed (> 72 hours) Immobilizing plaster cast Central venous access Age >= 75 History of VTE Family history of VTE Factor V Leiden Prothrombin [id number] Lupus anticoagulant Anticardiolipin antibodies Elevated serum homocysteine Heparin-induced thrombocytopenia Other congenital or acquired thrombophilia Stroke (< 1 month) Elective arthroplasty Hip, pelvis, or leg fracture Acute spinal cord injury (< 1 month) Prophylaxis Regimen: Total Risk Factor Score Risk Level Prophylaxis Regimen 0-1 Low Early ambulation 2 Moderate Order ONE of the following: *Sequential Compression Device (SCD) *Heparin 5000 units SQ BID 3-4 Higher Order ONE of the following medications: *Heparin 5000 units SQ TID *Enoxaparin/Lovenox 40 mg SQ daily (WT < 150 kg, CrCl > 30 mL/min) *Enoxaparin/Lovenox 30 mg SQ daily (WT < 150 kg, CrCl > 10-29 mL/min) *Enoxaparin/Lovenox 30 mg SQ BID (WT < 150 kg, CrCl > 30 mL/min) AND/OR *Sequential Compression Device (SCD) 5 or more Highest Order ONE of the following medications: *Heparin 5000 units SQ TID (Preferred with Epidurals) *Enoxaparin/Lovenox 40 mg SQ daily (WT < 150 kg, CrCl > 30 mL/min) *Enoxaparin/Lovenox 30 mg SQ daily (WT < 150 kg, CrCl > 10-29 mL/min) *Enoxaparin/Lovenox 30 mg SQ BID (WT < 150 kg, CrCl > 30 mL/min) AND *Sequential Compression Device (SCD) Assessment and Plan Plan 68-year-old white male being admitted for an NSTEMI and chest pain Chest pain Likely secondary to CAD but will cover for GERD as well, see treatment below Groundglass consolidation in the upper lobes greater right upper lobe.2. Subcentimeter right lung nodules.3. No thoracic or abdominal aortic aneurysm/ dissection.4. Polypoid lesion within the upper trachea anteriorly. NSTEMI HTN, CAD Cardiology following, continue home heparin drip, aspirin, Plavix, beta-benito - continue desiree-I, norvasc -trend troponins, telemetry -nitro prn peripheral edema -no vascular compression noted on CTA, possible fluid HF, pending echo Incidental lung nodules Follow-up with pulmonology/PCP outpatient will repeat CT scan heparin H&P: Quality VTE Deep Vein Thrombosis/Pulmonary Embolism Present on Admission: No
[2018-04-28 21:56] VITALS: RESP 18
[2018-04-28] MEDS: Metoprolol Tartrate 100 MG Tablet PO SCH (22:53)
--- NOTE | 2018-04-29 07:44 | P.PNCA ---
Subjective Interval history: Denies back pain, CP, arm pain, dyspnea, dizziness. Slept fairly well. Medications and Allergies Active Medications: Active Cardiac Medications Atorvastatin Calcium (Lipitor) 80 mg PO DAILY [facility] Clopidogrel Bisulfate (Plavix) 75 mg PO DAILY [facility] Heparin Sodium/Dextrose (Heparin/D5w 25,000 U/250 Ml) 25,000 unit in 250 mls @ 0 mls/hr IV.CONT TITRATE PRN; Protocol PRN Reason: Per Protocol Last Admin: 04/28/18 13:07 Dose: 980 units/hr, 9.8 mls/hr Metoprolol Tartrate (Lopressor) 100 mg PO BID [facility] Last Admin: 04/28/18 22:53 Dose: Not Given Nitroglycerin (Nitro-Bid 2% Oint) 0.5 inch TOPICAL Q6HR [facility] Last Admin: 04/29/18 05:36 Dose: 0.5 inch Pantoprazole Sodium (Protonix) 40 mg PO DAILY [facility] Allergies Allergy/AdvReac Type Severity Reaction Status Date / Time No Known Allergies Allergy Unverified 07/20/17 05:01 Home Medications Medication Instructions Recorded Confirmed Type amlodipine 5 mg PO DAILY 04/28/18 04/28/18 History aspirin [Aspirin Low Dose] 81 mg PO DAILY 04/28/18 04/28/18 History atorvastatin 80 mg PO DAILY 04/28/18 04/28/18 History clopidogrel 75 mg PO DAILY 04/28/18 04/28/18 History isosorbide mononitrate 30 mg PO DAILY 04/28/18 04/28/18 History lisinopril 5 mg PO DAILY 04/28/18 04/28/18 History metoprolol tartrate 100 mg PO BID 04/28/18 04/28/18 History Physical Exam Vital signs: Vital Signs 04/28/18 10:16 04/28/18 10:28 04/28/18 13:00 Temperature 98.1 F 98.1 F Pulse Rate 82 82 82 Respiratory Rate 14 18 Blood Pressure 107/55 L 107/55 L 103/66 Pulse Oximetry 96 96 97 04/28/18 14:00 04/28/18 15:00 04/28/18 16:16 Temperature 99 F Pulse Rate 80 78 81 Respiratory Rate 16 17 16 Blood Pressure 96/58 L 108/63 106/62 Pulse Oximetry 97 100 96 04/28/18 19:00 04/28/18 20:00 04/28/18 21:00 Temperature 99.0 F Pulse Rate 75 82 80 Respiratory Rate 18 Blood Pressure 96/59 L Pulse Oximetry 94 L 04/28/18 22:00 04/28/18 23:00 04/29/18 00:00 Temperature 98.5 F Pulse Rate 80 81 82 Respiratory Rate 18 Blood Pressure 94/59 L Pulse Oximetry 94 L 04/29/18 01:00 04/29/18 02:00 04/29/18 03:00 Temperature Pulse Rate 72 86 79 Respiratory Rate Blood Pressure Pulse Oximetry 04/29/18 04:00 04/29/18 05:00 04/29/18 06:00 Temperature 98.8 F Pulse Rate 82 81 83 Respiratory Rate 18 Blood Pressure 97/64 L Pulse Oximetry 95 Intake & Output 04/28/18 04/29/18 04/29/18 18:59 06:59 18:59 Intake Total 750 / 750 240 / 240 Output Total 500 / 500 Balance 750 / 750 -260 / -260 Weight 82.1 kg 82 kg Intake: IV 500 / 500 NS Inj 500 ML @ 1000 mls/hr IV. 500 / 500 SIG [place] Rx#:[id number] Oral 250 / 250 240 / 240 Output: Urine 500 / 500 Other: # Voids 0 Weight On Admission 82.1 kg - Constitutional no acute distress - Routine Neck Exam Absent: JVD - Routine Respiratory Exam Present: CTA bilaterally - Routine Cardiovascular Exam Present: RRR, S1, S2. Absent: murmur, gallop Results 04/28/18 10:30 04/28/18 10:30 Cardiac Enzymes 04/28/18 04/28/18 04/28/18 Range/Units 10:30 10:30 14:15 AST 98 H (15-37) U/L CK-MB (CK-2) 70.0 H (0.5-3.6) ng/mL Troponin I 7.53 H* 21.50 H* (0.02-0.05) ng/mL B-Natriuretic Peptide 164 H (0-100) pg/mL 04/28/18 Range/Units 20:15 AST (15-37) U/L CK-MB (CK-2) (0.5-3.6) ng/mL Troponin I 26.40 H* (0.02-0.05) ng/mL B-Natriuretic Peptide (0-100) pg/mL Coagulation 04/28/18 04/28/18 04/28/18 Range/Units 10:30 10:30 19:28 PT 10.0 (9.8-11.6) sec APTT 36.6 H 50.6 H D (23.4-31.7) sec B-Natriuretic Peptide 164 H (0-100) pg/mL CBC 04/28/18 Range/Units 10:30 WBC 17.6 H (4.0-11.0) th/mm3 RBC 4.04 L (4.50-5.90) mil/mm3 Hgb 13.6 (13.0-17.0) gm/dL Hct 39.8 (39.0-51.0) % Plt Count 333 (150-450) th/mm3 Neut # (Auto) 14.5 H (1.8-7.7) th/mm3 Lymph # (Auto) 1.2 (1.0-4.8) th/mm3 [place] # (Auto) 1.7 H (0.0-0.9) th/mm3 Eos # (Auto) 0.0 (0.0-0.4) th/mm3 Baso # (Auto) 0.1 (0.0-0.2) th/mm3 Comprehensive Metabolic Panel 04/28/18 Range/Units 10:30 Sodium 135 L (136-145) meq/L Potassium 4.4 (3.5-5.1) meq/L Chloride 105 (98-107) meq/L Carbon Dioxide 19.9 L (21.0-32.0) meq/L BUN 12 (7-18) mg/dL Creatinine 1.14 (0.60-1.30) mg/dL Calcium 8.6 (8.5-10.1) mg/dL AST 98 H (15-37) U/L ALT 34 (12-78) U/L Alkaline Phosphatase 124 H (45-117) U/L Total Protein 7.7 (6.4-8.2) g/dL Albumin 2.9 L (3.4-5.0) g/dL Intake and Output 04/28/18 04/29/18 04/29/18 22:59 06:59 14:59 Intake Total 250 / 250 240 / 240 Output Total 500 / 500 Balance 250 / 250 -260 / -260 Intake: Oral 250 / 250 240 / 240 Output: Urine 500 / 500 Other: # Voids 0 Weight 82.1 kg 82 kg Weight On Admission 82.1 kg - Imaging and Cardiology Imaging: Impressions Cervical Spine CT 04/28/18 10:27 CONCLUSION: 1. Degenerative changes are seen predominantly at C5-6. 2. No fracture or subluxation. Head CT 04/28/18 10:27 CONCLUSION: 1. 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 2. Cortical atrophy. . . Thoracic Aorta CT 04/28/18 10:27 CONCLUSION: 1. Groundglass consolidation in the upper lobes greater right upper lobe. 2. Subcentimeter right lung nodules. 3. No thoracic or abdominal aortic aneurysm/dissection. 4. Polypoid lesion within the upper trachea anteriorly. Chest X-Ray 04/28/18 10:28 CONCLUSION: No acute cardiopulmonary disease Assessment and Plan - Assessment (1) Non-ST elevation [place] (NSTEMI) Code(s): I21.4 - Non-ST elevation (NSTEMI) myocardial infarction Status: Acute Plan: Stable overnight. No further right subscapular pain, which may have been his angina equivalent. No CHF. Echo pending. RECOMMEND continue beta benito, heparin, aspirin, Plavix, topical nitrate. Possible cath tomorrow by . (2) Hypertension Code(s): I10 - Essential (primary) hypertension Status: Chronic Plan: Stable. Normotensive. (3) Hyperlipidemia Code(s): E78.5 - Hyperlipidemia, unspecified Status: Chronic Plan: Await fasting lipid profile this am. Continue atorvastatin. - Plan Code Status: full code Discussed Condition With: patient (2) Hypertension Qualifiers: Hypertension type: essential hypertension Qualified Code(s): I10 - Essential (primary) hypertension (3) Hyperlipidemia Qualifiers: Hyperlipidemia type: unspecified Qualified Code(s): E78.5 - Hyperlipidemia, unspecified
[2018-04-29] MEDS: Metoprolol Tartrate 100 MG Tablet PO SCH ×2 (09:21→21:06)
[2018-04-29 09:35] LABS: Hematocrit 38.4 % (39.0-51.0); Hemoglobin 13.1 gm/dL (13.0-17.0); Mean Corpuscular HGB Conc 34.2 % (32.0-36.0); Mean Corpuscular Hemoglobin 33.7 pg (27.0-34.0); Mean Corpuscular Volume 98.6 fL (80.0-100.0); Mean Platelet Volume 7.7 fL (7.0-11.0); Platelet Count 308 th/mm3 (150-450); Red Blood Count 3.89 mil/mm3 (4.50-5.90); Red Cell Distribution Width 13.9 % (11.6-17.2); White Blood Count 9.1 th/mm3 (4.0-11.0)
[2018-04-29 10:03] LABS: Chol/HDL Ratio 3.83 Ratio; HDL Cholesterol 33.6 mg/dL (40.0-60.0)
[2018-04-29 10:11] LABS: Troponin I 19.3 ng/mL (0.02-0.05)
--- NOTE | 2018-04-29 12:31 | ECHRPT ---
Indication: HEART FAILURE CONCLUSIONS Normal left ventricular size. Severe concentric left ventricular hypertrophy. There is distinct regional wall motion abnormalities. The left ventricular systolic function is low normal with an estimated ejection fraction in the rang e of 50- 55% from measurements from the subcostal window. Trace mitral valve regurgitation. Aortic valve sclerosis is present. technically limited study BP: / HR: Rhythm: Sinus MEASUREMENTS (Male / Female) Normal Values Technical Quality:Very technically difficult study 2D ECHO LV Diastolic Diameter PLAX 5.5 cm 4.2 - 5.9 / 3.9 - 5.3 cm LV Systolic Diameter PLAX 5.2 cm IVS Diastolic Thickness 0.9 cm 0.6 - 1.0 / 0.6 - 0.9 cm LVPW Diastolic Thickness 0.9 cm 0.6 - 1.0 / 0.6 - 0.9 cm LV Relative Wall Thickness 0.3 LVOT Diameter 2.1 cm Aortic Root Diameter 2.2 cm LA Systolic Diameter LX 2.9 cm 3.0 - 4.0 / 2.7 - 3.8 cm M-MODE LV Diastolic Diameter MM 3.6 cm 4.2 - 5.9 / 3.9 - 5.3 cm LV Systolic Diameter MM 2.3 cm LV Ejection Fraction MM Teich 67.9 % IVS Diastolic Thickness MM 1.7 cm 0.6 - 1.0 / 0.6 - 0.9 cm LVPW Diastolic Thickness MM 1.7 cm 0.6 - 1.0 / 0.6 - 0.9 cm LV Relative Wall Thickness MM 1.0 0.24 - 0.42 / 0.22 - 0.42 LV Mass Index MM 124.4 g/m 49 - 115 / 43 - 95 g/m RV Diastolic Diameter MM 1.3 cm DOPPLER PV Peak Velocity 88.0 cm/s PV Peak Gradient 3.1 mmHg FINDINGS LEFT VENTRICLE Normal left ventricular size. Severe concentric left ventricular hypertrophy. There is distinct regional wall motion abnormalities. The left ventricular systolic function is low normal with an estimated ejection fraction in the rang e of 50- 55% from measurements from the subcostal window. RIGHT VENTRICLE Normal right ventricular size and systolic function. LEFT ATRIUM The left atrial size is normal. RIGHT ATRIUM The right atrial size is normal. ATRIAL SEPTUM The interatrial septum not well visualized. AORTA The aortic root and proximal ascending aorta are not well visualized. MITRAL VALVE Trace mitral valve regurgitation. AORTIC VALVE Aortic valve sclerosis is present. TRICUSPID VALVE The tricuspid valve is not well visualized. PULMONARY VALVE The pulmonary valve is not well visualized. VESSELS The inferior vena cava was not well visualized. PERICARDIUM No pericardial effusion. Jesse Black MD, FACC, [facility] [place] (Electronically Signed) Final Date:29 April 2018 12:30
[2018-04-29] MEDS: Heparin Drip 25,000 UNIT/250 ML BAG IV.CONT PRN (14:07)
--- NOTE | 2018-04-29 16:18 | P.PNIM ---
Subjective Interval history: Nursing reports that patient is to take Lortab at home for some leg pains. Patient says today he does not have any chest pain, just periodic neck pains. Physical Exam Vital signs: Vital Signs 04/28/18 19:00 04/28/18 20:00 04/28/18 21:00 Temperature 99.0 F Pulse Rate 75 82 80 Respiratory Rate 18 Blood Pressure 96/59 L Pulse Oximetry 94 L 04/28/18 22:00 04/28/18 23:00 04/29/18 00:00 Temperature 98.5 F Pulse Rate 80 81 82 Respiratory Rate 18 Blood Pressure 94/59 L Pulse Oximetry 94 L 04/29/18 01:00 04/29/18 02:00 04/29/18 03:00 Temperature Pulse Rate 72 86 79 Respiratory Rate Blood Pressure Pulse Oximetry 04/29/18 04:00 04/29/18 05:00 04/29/18 06:00 Temperature 98.8 F Pulse Rate 82 81 83 Respiratory Rate 18 Blood Pressure 97/64 L Pulse Oximetry 95 04/29/18 07:00 04/29/18 08:00 04/29/18 09:00 Temperature 98.5 F Pulse Rate 83 84 102 H Respiratory Rate 18 Blood Pressure 100/62 Pulse Oximetry 96 04/29/18 10:00 04/29/18 11:00 04/29/18 11:35 Temperature Pulse Rate 88 87 Respiratory Rate 18 Blood Pressure Pulse Oximetry 04/29/18 12:00 04/29/18 13:00 04/29/18 14:00 Temperature 98.2 F Pulse Rate 74 68 74 Respiratory Rate 18 Blood Pressure 119/66 Pulse Oximetry 95 04/29/18 15:00 Temperature Pulse Rate 75 Respiratory Rate Blood Pressure Pulse Oximetry Intake & Output 04/28/18 04/29/18 04/29/18 18:59 06:59 18:59 Intake Total 750 / 750 240 / 240 250 / 250 Output Total 500 / 500 Balance 750 / 750 -260 / -260 250 / 250 Weight 82.1 kg 82 kg Intake: IV 500 / 500 250 / 250 Heparin/D5W 25,000 U/250 mL 25, 250 / 250 000 unit In 250 ml @ Per Protocol IV.CONT TITRATE PRN Rx #:[id number] NS Inj 500 ML @ 1000 mls/hr IV. 500 / 500 SIG [place] Rx#:[id number] Oral 250 / 250 240 / 240 Output: Urine 500 / 500 Other: # Voids 0 Date of Last Bowel Movement 04/27/18 Weight On Admission 82.1 kg Narrative: Clear lungs bilaterally, unlabored breathing Heart sounds regular rate and rhythm No lower extremity edema Peripheral edema in hands seems almost gone Results Labs CBC & Chem 7: 04/29/18 07:57 04/28/18 10:30 Assessment and Plan (1) Non-ST elevation [place] (NSTEMI): Code(s): I21.4 - Non-ST elevation (NSTEMI) myocardial infarction Status: Acute (2) Hypertension: Code(s): I10 - Essential (primary) hypertension Status: Chronic (3) Hyperlipidemia: Code(s): E78.5 - Hyperlipidemia, unspecified Status: Chronic Plan 68-year-old white male being admitted for an NSTEMI and chest pain Chest pain Likely secondary to CAD but will cover for GERD as well, see treatment below Groundglass consolidation in the upper lobes greater right upper lobe.2. Subcentimeter right lung nodules.3. No thoracic or abdominal aortic aneurysm/ dissection.4. Polypoid lesion within the upper trachea anteriorly. NSTEMI HTN, CAD Cardiology following, continue home heparin drip, aspirin, Plavix, beta-benito - continue desiree-I, norvasc -trend troponins, telemetry -nitro prn LHC possibly tomorrow peripheral edema -no vascular compression noted on CTA, possible fluid HF, echo pending Possibly secondary to arthritis Incidental lung nodules Follow-up with pulmonology/PCP outpatient will repeat CT scan heparin Progress Note: Quality VTE Deep Vein Thrombosis/Pulmonary Embolism Present on Admission: No _ (1) Hyperlipidemia Qualifiers: Hyperlipidemia type: unspecified Qualified Code(s): E78.5 - Hyperlipidemia, unspecified (2) Hypertension Qualifiers: Hypertension type: essential hypertension Qualified Code(s): I10 - Essential (primary) hypertension
[2018-04-29] MEDS ORDERED: diazePAM 5 MG Tablet PO SCH (17:45)
[2018-04-30] MEDS: Sod Chloride 0.9% Inj 1,000 ML IV.CONT SCH ×3 (00:17→15:48)
[2018-04-30 07:49] LABS: Baso # (Auto) 0.1 th/mm3 (0.0-0.2); Baso % (Auto) 0.7 % (0.0-2.0); Eos # (Auto) 0.2 th/mm3 (0.0-0.4); Eos % (Auto) 2.1 % (0.0-4.0); Hematocrit 37.1 % (39.0-51.0); Hemoglobin 12.9 gm/dL (13.0-17.0); Lymph # (Auto) 1.3 th/mm3 (1.0-4.8); Mean Corpuscular HGB Conc 34.8 % (32.0-36.0); Mean Corpuscular Hemoglobin 34.1 pg (27.0-34.0); Mean Corpuscular Volume 97.9 fL (80.0-100.0); Mean Platelet Volume 7.1 fL (7.0-11.0); Mono # (Auto) 0.6 th/mm3 (0.0-0.9); Mono % (Auto) 7.8 % (0.0-8.0); Neut # (Auto) 5.8 th/mm3 (1.8-7.7); Neut % (Auto) 73.4 % (16.0-70.0); Platelet Count 346 th/mm3 (150-450); Red Blood Count 3.79 mil/mm3 (4.50-5.90); Red Cell Distribution Width 13.3 % (11.6-17.2); White Blood Count 7.8 th/mm3 (4.0-11.0)
[2018-04-30] MEDS: Metoprolol Tartrate 100 MG Tablet PO SCH (08:24)
[2018-04-30 08:31] LABS: Calcium 8.3 mg/dL (8.5-10.1); Carbon Dioxide 23.9 meq/L (21.0-32.0); Potassium 3.7 meq/L (3.5-5.1)
[2018-04-30] MEDS ORDERED: Heparin/NS PF Inj 1,500 ML ONE (10:58)
[2018-04-30] MEDS ORDERED: Heparin 10,000 UNITS/10 ML Vial (for IV use) ONE (10:59)
[2018-04-30] MEDS ORDERED: fentaNYL Citrate Inj 100 MCG/2 ML Ampul ONE (10:59)
[2018-04-30] MEDS ORDERED: Atropine Inj 1 MG/ML Vial IV.PUSH PRN (11:49)
--- NOTE | 2018-04-30 11:54 | CATHPROC ---
[employer] [facility] Report Study Information Study Number Admission Scheduled Start Study Start [id number] Apr 28 2018 1:20PM 04/30/2018 Apr 30 2018 10:41AM [place] [facility] Cardiac Catheterization Admit Source Facility Department Emergency department [facility] - [employer] Professor Physician and Clinical Staff Initial Jin Armstrong Atomic Spectroscopist Danuta Coleman RN Atomic Spectroscopist Althea Oscar RN Recorder Lolly, Barbara KelleyRT(R) Procedures Performed Procedure Location (Site) Vessel Name Angiogram LV LV Ventricle Coronary Angiograms LCA Left Coronary Coronary Angiograms RCA Right Coronary L Heart Cath Equipment Time Index Editor Description Size Mfg Part Number Used/Scraped TRANSDUCER, TRUWAVE [id number] 10:44 JALLOH DUNN * Used W/STOCKCOCK *[id number] INTRODUCER SET, 11:11 [employer] FR 5 [id number] *[id number] Used MICROPUNCTURE STIFF 534-676T *[id number] 534-660T *[id number] 534-622T *[id number] PIGTAIL ANG. 145 INFINITI 534-652S CATHETER *[id number] 10:44 [email or web address] BLANKET,WARM AIR CCL * Used *[id number] 10:44 [email or web address] PACK, CCL CUSTOM * Used *[id number] 10:44 [employer] PACER PEN, SKIN DUAL W/ RULER * Used *[id number] 10:44 [employer] SHEATH, FR6.5 PRELUDE 11CM FR 6.5 038ACT Used *[id number] 10:44 [employer] WIRE, 3MMJ .035 180CM 180CM Used *[id number] 10:44 NAMIC MANIFOLD, 4 PORT * Used *[id number] 10:44 [employer] OMNIPAQUE, 350 MG, 150ML 150ML [id number] Used 11:15 [employer] OMNIPAQUE, 350 MG, 50ML 50ML [id number] Used Equipment Model, Serial, Lot Number and Expiration Data Description Model Number Serial Number Lot Number Expiration Date INTRODUCER SET, [id number] 03-03-2021 MICROPUNCTURE STIFF PIGTAIL ANG. 145 INFINITI [id number] 11-10-2020 CATHETER History: Current Medications Medication Dosage/Unit Route Frequency Last Date/Time Taken ASA LOPRESSOR PLAVIX Statins (any) History: Allergies Allergy Reaction No Known Allergies History: Risk Factors Family History of Hypertension Dyslipidemia Previous NH Previous Heart Failure Premature CAD Yes Yes No Yes No Prior Valve Prior CABG Prior CABGDate Surgery No Yes 03/13/2004 Cerebrovascular Peripheral Artery Chronic Lung On Dialysis Diabetes Disease Disease Disease No Yes Yes No No History: Stress Tests Stress or Imaging Studies Performed No History: Other Current Smoker Method Packs a Day Years Used Pack Years Yes Cigarettes 2 45 90 Labs Hgb (g/dl) Hct (%) WBC (l/cumm) Platelets (thousands) 11.60-17.00 35.00-51.00 4.00-11.00 150.00-450.00 12.9 37.1 7.8 346 Glucose (mg/dl) BUN (mg/dl) Creatinine (mg/dl) BUN:Creatinine (1:x) 74.00-106.00 7.00-18.00 0.50-1.30 10.00-20.00 113 15 0.8 18.8 Na (meq/l) K (meq/l) 136.00-145.00 3.50-5.10 145 3.7 INR (PTT:PT) 0.90-1.10 1 Troponin I (ng/ml) CPK-MB (ng/ML) 0.02-0.05 0.50-3.60 19.3 Not Drawn Medication Medication Total Dose (Bolus/Oral) Medication Total Dosage/Unit 1% XYLOCAINE 20 mL HEPARIN 1000 units VERSED 1 mg Medications (Bolus/Oral) Medication Time Given Dosage/Unit Administered By Reason HEPARIN 04/30/2018 10:57:33 AM 1000 units Jin Wilson 1000 units HEPARIN given in lab by Jin Wilson in Right Wrist via Peripheral IV. Ordered by Jin Wilson. VERSED 04/30/2018 11:09:52 AM 1 mg Althea Oscar 1 mg VERSED given in lab by Althea Oscar RN in Right Wrist via Peripheral IV. Ordered by Jin Wilson. 1% XYLOCAINE 04/30/2018 11:11:11 AM 20 mL Althea Oscar 20 mL 1% XYLOCAINE given in lab by Althea Oscar, RN in Right Groin via Subcutaneous. Ordered by Jin Alcocer. Medication (Drip) Medication Time Given Dosage/Unit Concentration/Unit Diluent (ml) Solution HEPARIN DRIP 04/30/2018 11:28:07 AM 100 units/hr 67281 units 250 D5W 100 units/hr HEPARIN DRIP given in lab by Althea Oscar, JASON via Peripheral IV. Pump/Drip Flow = 1 m l/hr [place] [address] units in 250 ml. Ordered by Jin Wilson. Discontinued at 04/30/2018 11:28. IV Solutions 04/30/2018 10:58:22 AM 0 mL (IV) 1000 NaCl .9 Patient arrived on IV Solutions in Right Wrist via Peripheral IV. Pump/Drip Flow = 100 ml/hr using Na Cl .9. Ordered by Jin Wilson. Initial Case Assessment Cardiovascular HR Rhythm NIBP Chest Pain 65 sr 135/75 0 Edema Present Skin color Skin None Normal Warm Dry Circulatory - Right Pulses Dorsalis Pedis Femoral 1 2 Scale (0,1,2,3,4,d) Circulatory - Left Pulses Dorsalis Pedis Femoral 1 2 Scale (0,1,2,3,4,d) Circulatory - Lower Extremities Color Lower Right Color Lower Left Normal Normal Neurological State Oriented to time-place- Alert Moves all extremities person Respiration - General Respiration Rate SpO2 (%) (B/min) 20 96 Final Case Assessment Cardiovascular HR Rhythm NIBP Chest Pain 66 sr 96/60 0 Edema Present Skin color Skin None Normal Warm Dry Circulatory - Right Pulses Dorsalis Pedis Femoral 1 2 Scale (0,1,2,3,4,d) Circulatory - Left Pulses Dorsalis Pedis Femoral 1 2 Scale (0,1,2,3,4,d) Circulatory - Lower Extremities Color Lower Right Color Lower Left Normal Normal Neurological State Oriented to time-place- Alert Moves all extremities person Respiration - General Respiration Rate SpO2 (%) (B/min) 18 97 Chronological Log Time Study Chronological Log 10:52:20 Patient arrived via Bed. 10:52:21 Patient Name, D.O.B, / Armband Verified By R.N. 10:52:22 Consent signed by the physician and the patient and verified by the Geomatics Professor staff. 10:52:23 Pre-op and post- op instructions given; patient acknowledges understanding of instructions. 10:52:28 Presedation assessment performed by Geomatics Professor RN. 10:52:30 Verbal Stimulation=2 Physical Stimulation=2 Airway=2 Respiration=2 TOTAL=8. (0=absent, 1=li mited, 2=present) 10:52:58 Patient has been NPO for More than 6Hrs. 10:53:00 Skin Breakdown/sore on butt per pt 10:53:29 Patient Warmer Placed on the Table. 10:53:30 Alba Prominences Protected 10:53:34 History and physical on the chart or being dictated. 10:53:35 A # 20 IV was noted in the Wrist RT. Grade = 0 Vitals capture started with the following parameters, Patient=Adult, Interval=5 min, Initial Pr clhmib=223 mmHg, 10:57:29 Deflation Rate=5 mmHg, Cuff placed on Right Limb 10:57:33 1000 units HEPARIN given in lab by Jin Wilson in Right Wrist via Peripheral IV. Ordered by Jin Wilson. 10:58:07 HR=65 bpm, UQVJ=004/75 mmhg, SpO2=96.0 %, Resp=16 B/min, Andrews=10 Patient arrived on IV Solutions in Right Wrist via Peripheral IV. Pump/Drip Flow = 100 ml/hr us ing NaCl .9. Ordered by 10:58:22 Jin Wilson. 10:58:40 Reference ECG taken Assessment: Initial Case, HR=65 BPM, Rhythm=sr, PCPQ=835/75 mmhg, Chest Pain=0, Edema=None, Col or=Normal, Skin = Warm, Dry Right Pulses: Anuel Ped=1, Femoral=2 Left Pulses: Anuel Ped=1, Femoral=2 10:58:42 Lower Right Extremities: Color=Normal Lower Left Extremities: Color=Normal Neurological: State=Alert, Ox3, WELLS Respiration: Resp=20 B/min, SpO2=96 % 11:00:24 MD arrived. 11:01:34 Bilateral groins prepped with 2% chlorhexidine, and draped after a 3 min. waiting time. 11:03:08 HR=65 bpm, CYZO=740/72 mmhg, SpO2=97.0 %, Resp=12 B/min, Andrews=10 11:06:14 Contrast Scanned 11:08:03 HR=67 bpm, HJIB=953/70 mmhg, Resp=18 B/min, Andrews=10 Time Out. Correct patient, correct procedure, correct physician, labs, allergies, and equipment verified with cardiovascular lab director 11:08:30 team present. Fire risk assesment completed (see hard stop sheet for coding). Time Out Conc urred by MD and individual staff in procedure. 11:08:42 Case Start 11:09:52 1 mg VERSED given in lab by Althea Oscar RN in Right Wrist via Peripheral IV. Ordered b y Jin Wilson. 11:11:11 20 mL 1% XYLOCAINE given in lab by Althea Oscar RN in Right Groin via Subcutaneous. Ord ered by Jin Wilson. 11:11:21 Pressure channel 1 zeroed. 11:13:04 HR=67 bpm, YBNN=367/71 mmhg, SpO2=94.0 %, Resp=15 B/min, Andrews=9 11:13:39 Access site was Right Femoral Artery. with a micropuncture 11:14:03 A SHEATH, FR6.5 PRELUDE 11CM FR 6.5 was advanced into the Fem Art (right) using the Inga technique. 11:14:39 power injector loaded by althea grant and witnessed by barbara Zuniga PIGTAIL BERRY. 145 INFINITI CATHETER FR 6 was advanced over a wire. OMNIPAQUE, 350 MG, 50ML 50M L was used 11:15:15 for injections. Recorded Pressure: LV, HR=63, Condition=Condition 1 11:15:54 (Left Ventricle) LV 106/6/20 11:16:40 The LV was injected at 10 cc/sec for a total of 30. OMNIPAQUE, 350 MG, 50ML 50ML used. Recorded Pressure: LV, Ao, HR=62, Condition=Condition 1 11:17:45 (Left Ventricle) LV 107/8/22, (Aorta) Ao 109/53/74 11:18:05 HR=63 bpm, ULYR=934/61 mmhg, SpO2=95.0 %, Resp=19 B/min After removing the current catheter a JL 5.0 INFINITI CATHETER FR 6 was advanced over a WIRE, 3 MMJ .035 180CM 11:18:25 180CM. Recorded Pressure: Ao, HR=63, Condition=Condition 1 11:19:44 (Aorta) Ao 90/41/58 11:19:51 The LCA was injected and visualized at various angles. OMNIPAQUE, 350 MG, 150ML 150ML used . 11:20:33 Catheter was removed 11:23:04 HR=61 bpm, YLPM=441/58 mmhg, SpO2=95.0 %, Resp=21 B/min, Pain=0, Andrews=10, Valadez=2 After removing the current catheter a 3DRC INFINITI CATHETER FR 6 was advanced over a WIRE, 3MM J .035 180CM 11:25:37 180CM. 11:26:38 The RCA was injected and visualized at various angles. OMNIPAQUE, 350 MG, 150ML 150ML used . 11:26:51 Catheter was removed 100 units/hr HEPARIN DRIP given in lab by Althea Oscar, RN via Peripheral IV. Pump/Drip Joel w = 1 ml/hr using D5W 11:28:07 [place] [address] units in 250 ml. Ordered by Jin Wilson. Discontinued at 2018 11:28. 11:28:08 HR=64 bpm, CMBL=121/58 mmhg, SpO2=95.0 %, Resp=25 B/min, Pain=0, Andrews=10, Valadez=2 11:28:37 Activated Clotting Time Drawn 11:29:31 An injection in the Fem Art (right) was made through the SHEATH, FR6.5 PRELUDE 11CM FR 6.5 . 11:29:49 Case End (Physician broke scrub) 11:31:28 ACT (Normal Range 90-180) = 138 11:33:00 HR=67 bpm, NIBP=96/60 mmhg, SpO2=96.0 %, Resp=28 B/min, Pain=0, Andrews=10, Valadez=2 Assessment: Final Case, HR=66 BPM, Rhythm=sr, NIBP=96/60 mmhg, Chest Pain=0, Edema=None, Color =Normal, Skin = Warm, Dry Right Pulses: Anuel Ped=1, Femoral=2 Left Pulses: Anuel Ped=1, Femoral=2 11:33:26 Lower Right Extremities: Color=Normal Lower Left Extremities: Color=Normal Neurological: State=Alert, Ox3, WELLS Respiration: Resp=18 B/min, SpO2=97 % 11:33:48 Catheter(s) removed without difficulty 11:34:00 No case complications noted. 11:34:01 Cine recording checked. 11:34:04 Bedside Report will be given. 11:34:07 A Left Heart Cath was performed. 11:36:01 Sheath(s) left in place, will be removed in Holding Area 11:38:15 Vitals capture stopped. 11:41:10 Patient moved to stretcher End Study - Contrast Media Used In Study Contrast Total Opened (mL) Total Used (mL) Total Wasted (mL) Omnipaque 90 90 0 End Study - Maximum Contrast Load Max Contrast Load (mL) 506.3 End Study - Radiation Exposure Fluoro Time Fluoro Dose (mGy) Cine Dose (uGym2) (minutes) 3.6 644 4804 End Study - Patient Disposition Complications Transferred To Telemetry Bed
[2018-04-30] MEDS ORDERED: Sod Chloride 0.9% Inj 1,000 ML IV.CONT SCH (12:00)
[2018-04-30] MEDS ORDERED: Iohexol 350 MG/ML 100 ML Vial (for Cath Lab) IVCONTRAST ONE (12:11)
--- NOTE | 2018-04-30 12:32 | MA ---
cc: Jin Wilson MD DATE: 04/30/2018 PROCEDURES PERFORMED: 1. Left heart catheterization. 2. Left ventriculography. 3. Coronary angiography. 4. Bypass graft angiography. 5. Right femoral arterial access. 6. Right iliac artery angiography. DESCRIPTION OF PROCEDURE: The patient was brought to the cardiac catheterization lab in a fasting state. Using 1% lidocaine and a micropuncture set, I was able to access the right femoral artery fairly easily and a 6 Amharic sheath placed. Next, an angled pigtail catheter was used to measure LV pressure, followed by an LV gram and then a pullback. Left coronary angiography was completed using a left 5 Inga. Right coronary angiography was completed using a 3DRC catheter. Angiography of the internal mammary bypass was performed subselectively with an INNA catheter. FINDINGS: 1. Hemodynamics: Left ventricular pressure is 107/8 with an end-diastolic pressure elevated at 22. Aortic pressure is 90/41 with a mean of 58. There was no gradient during pullback from the left ventricle to the aorta. 2. Left ventriculography: Shows a dense posterobasal akinesis. There is anterolateral and apical hypokinesis. EF is only about 35%. I looked at his echocardiogram and I think his EF was 35% on it as well. There is no mitral regurgitation. 3. Coronary angiography: Left main coronary artery is short and has about 35% stenosis. It bifurcates into the LAD and circumflex vessels. The LAD is occluded after a small diagonal branch. The diagonal branch has about 90% stenosis, but it is only 1 mm in size. The circumflex artery has irregularities of about 10%. There is a tiny marginal branch coming off the mid portion of the circumflex which is occluded with faint collaterals. The right coronary artery is totally occluded proximally at the ostium. 4. Bypass graft: The left internal mammary bypass graft is widely patent to the mid LAD. There are collaterals to the distal right coronary artery from this vessel as well as from the circumflex artery. CONCLUSIONS: 1. Elevated left ventricular end-diastolic pressure. 2. At least moderately impaired left ventricular function with an ejection fraction of 35%. 3. Two-vessel coronary artery disease with total occlusion of the left anterior descending but is bypassed and now total occlusion of the right coronary artery stents. The entire vessel was stented previously and it does not look feasible to try to reopen this vessel. 4. Severe peripheral arterial disease with only a 2-3 mm size external iliac and common femoral artery. PLAN: Medical management. MD MICHELLE Leach/darline , 11:47 AM , 11:54 AM
[2018-04-30 16:40] VITALS: BP 122/70; TEMP 98.6; O2SAT 98
--- NOTE | 2018-04-30 17:00 | P.DS ---
DS: Providers Date of admission: 04/28/18 13:20 Primary care physician: Iraida Espinal MD Consults: 04/28/18 13:20 Consult to Cardiology Routine Consulting Provider: Ibrahima Kirkpatrick Does the patient have a Can Tender who follows them?: Yes Preferred Awning Spreader:: Ibrahima Kirkpatrick Reason for Consultation: NSTEMI - ER discussed w/ Dr. Kirkpatrick Notified:: Service Spoke with:: CADEN Date Notified:: 04/28/18 Time Notified:: 13:31 Ordering Provider: ANDREW 04/29/18 09:58 HUB Only Consult Order Routine Consulting Provider: Frandy Wise Brief History from admission: 68-year-old white male being admitted for chest pain and NST GENNA. Patient was in his [facility] until about a week or so ago when he began experiencing periodic morning chest pains. He was originally planning to get an outpatient stress test. However for the last 3 days he has been having more consistent chest pains that would last for a few minutes in the morning and then they would go away. Says with some repositioning the pains would go away, never came back with ambulation or exertion. Denies any nausea vomiting. Reports being compliant with all his medications including his blood thinners. Pain at its worse this morning was 8/10, decided come to the ED. He also reports having some associated bilateral upper extremity swelling and pain but no weakness, definitely no focal weakness. Denies any headaches. In the ED he had an EKG done which adamantly reviewed did show some T wave inversions in the anterior leads but this seemed to also be present on the one prior to this a few months ago. His troponin was elevated at a level of 7. He also had a CTA done of his thoracic aorta which showed subcentimeter right lung nodules, ground glass opacities in the right upper lobes. He was given aspirin and started on a heparin drip. CT spine was also done which showed degenerative changes. Cardiology was consulted. DS: Diagnosis Discharge Diagnosis (1) Non-ST elevation IN (NSTEMI): Status: Acute (2) Hypertension: Status: Chronic (3) Hyperlipidemia: Status: Chronic DS: Summary Patient underwent heart cath, was found to have significant disease that was not amenable to PTCA with stenting. Medical management was concluded to be the plan of care. Patient has met maximal benefit from hospitalization is clinically stable for discharge. Time Spent with Patient Total time spent providing and/or coordinating discharge services: Quality: VTE Deep Vein Thrombosis/Pulmonary Embolism Present on Admission: No Results Labs on day of discharge: Labs from last 24 hours 04/30/18 04/30/18 04/30/18 07:32 07:32 07:32 WBC 7.8 RBC 3.79 L Hgb 12.9 L Hct 37.1 L MCV 97.9 MCH 34.1 H MCHC 34.8 RDW 13.3 Plt Count 346 MPV 7.1 Neut % (Auto) 73.4 H Lymph % (Auto) 16.0 [place] % (Auto) 7.8 Eos % (Auto) 2.1 Baso % (Auto) 0.7 Neut # (Auto) 5.8 Lymph # (Auto) 1.3 [place] # (Auto) 0.6 Eos # (Auto) 0.2 Baso # (Auto) 0.1 WBC Differential . Differential Comment Auto diff final APTT 39.7 H Sodium 145 D Potassium 3.7 Chloride 113 H D Carbon Dioxide 23.9 Anion Gap 8 BUN 15 Creatinine 0.85 Estimated GFR 89 Random Glucose 113 H Calcium 8.3 L Impressions ITS Impressions Cervical Spine CT 04/28/18 10:27 CONCLUSION: 1. Degenerative changes are seen predominantly at C5-6. 2. No fracture or subluxation. Head CT 04/28/18 10:27 CONCLUSION: 1. 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 2. Cortical atrophy. . . Thoracic Aorta CT 04/28/18 10:27 CONCLUSION: 1. Groundglass consolidation in the upper lobes greater right upper lobe. 2. Subcentimeter right lung nodules. 3. No thoracic or abdominal aortic aneurysm/dissection. 4. Polypoid lesion within the upper trachea anteriorly. Chest X-Ray 04/28/18 10:28 CONCLUSION: No acute cardiopulmonary disease Discharge Plan Discharge Disposition Patient Disposition: 01 Discharge Home Discharge Order Discharge Orders: Discharge Order (Routine); Ordered 04/30/18 Ordered By: Nawaf Santos Physicians Team Primary Care Provider: Iraida Espinal Attending Provider: Nawaf Santso Other Providers: Ibrahima Kirkpatrick ; [employer] Rxs /Orders / Referrals /Forms Prescriptions: Continue atorvastatin 80 mg Tablet 80 mg PO DAILY RF: 0 metoprolol tartrate 100 mg Tablet 100 mg PO BID RF: 0 isosorbide mononitrate 30 mg Tablet Extended Release 24 Hr 30 mg PO DAILY RF: 0 clopidogrel 75 mg Tablet 75 mg PO DAILY RF: 0 amlodipine 5 mg Tablet 5 mg PO DAILY RF: 0 aspirin [Aspirin Low Dose] 81 mg Tablet,Delayed Release (Dr/Ec) 81 mg PO DAILY RF: 0 lisinopril 5 mg Tablet 5 mg PO DAILY RF: 0 hydrocodone-acetaminophen [[place]] 7.5-325 mg Tablet 1 tab PO BID RF: 0 Referrals: Iraida Espinal MD [Primary Care Provider] - See Instructions Status ED Status: Left Department
[2018-04-30 18:18] VITALS: PULSE 81
[2018-04-30] MEDS ORDERED: Metoprolol Tartrate 50 MG Tablet PO SCH (21:00)
[2018-05-01] MEDS ORDERED: Isosorbide Mononitrate 30 MG ER 24HR Tablet (Imdur) PO SCH (07:00)
[2018-05-01] MEDS ORDERED: Lisinopril 10 MG Tablet PO SCH (09:00)
--- NOTE | 2018-05-01 16:33 | ECG ---
Date Performed: 04/30/2018 Time Performed: 14:22:00 PTAGE: 68 years EKG: Sinus rhythm Left anterior fasicular block. RIGHT BUNDLE BRANCH BLOCK Secondary ST-T wave changes. Since previous tracing, no significant change noted ABNORMAL ECG PREVIOUS TRACING : 04/28/2018 10.22 DOCTOR: Jin Wilson Interpretating Date/Time 05/01/2018 16:31:31
== END 2018-04-30 18:48 | disposition home or self-care (01) | DRG 281 ==
LOC: NEPC 09:58 → NEDA 13:20 → HCIN 15:49
PROVIDERS: ADMIT Hospitalist; ATTEND Hospitalist
DX: G89.29 Other chronic pain; T82.855A Stenosis of coronary artery stent, initial encounter; I25.118 Atherosclerotic heart disease of native coronary artery with other forms of angina pectoris; F17.210 Nicotine dependence, cigarettes, uncomplicated; R91.8 Other nonspecific abnormal finding of lung field; Z95.1 Presence of aortocoronary bypass graft; R60.0 Localized edema; E78.5 Hyperlipidemia, unspecified; I73.9 Peripheral vascular disease, unspecified; Z86.73 Personal history of transient ischemic attack (TIA), and cerebral infarction without residual deficits; Z79.02 Long term (current) use of antithrombotics/antiplatelets; Z79.82 Long term (current) use of aspirin; I10 Essential (primary) hypertension; I25.2 Old myocardial infarction; I21.4 Non-ST elevation (NSTEMI) myocardial infarction
CPT/HCPCS: 70450; 71010; 71045; 71275; 72125; 74175; 80048; 80053; 80061; 82272; 82550; 82552; 82948; 82962; 83520; 83605; 83690; 83735; 83880; 84484; 85002; 85025; 85027; 85610; 85730; 90761; 90774; 90784; 93005; 93306; 93459; 96361; 96374; 99152; 99153; 99285; C1769; C1893; C8952; J1644; J2250; J2405; J3010; J7030; J7040; Q0163; Q9967

== ENCOUNTER 2018-05-05 09:15 | Observation (INO) ==
[2018-05-05] MEDS ORDERED: MethylPREDNISolone Sod Succinate Inj 125 MG/2 ML Vial IV.PUSH ONE (09:27)
[2018-05-05 09:48] LABS: Baso # (Auto) 0.3 th/mm3 (0.0-0.2); Baso % (Auto) 4.8 % (0.0-2.0); Eos % (Auto) 0.4 % (0.0-4.0); Hematocrit 38.3 % (39.0-51.0); Hemoglobin 13.1 gm/dL (13.0-17.0); Lymph # (Auto) 1.4 th/mm3 (1.0-4.8); Lymph % (Auto) 22.2 % (9.0-44.0); Mean Corpuscular HGB Conc 34.2 % (32.0-36.0); Mean Corpuscular Hemoglobin 32.9 pg (27.0-34.0); Mean Corpuscular Volume 96.2 fL (80.0-100.0); Mean Platelet Volume 7.1 fL (7.0-11.0); Mono # (Auto) 0.5 th/mm3 (0.0-0.9); Mono % (Auto) 7.6 % (0.0-8.0); Neut # (Auto) 4.2 th/mm3 (1.8-7.7); Platelet Count 415 th/mm3 (150-450); Red Blood Count 3.98 mil/mm3 (4.50-5.90); Red Cell Distribution Width 12.8 % (11.6-17.2); White Blood Count 6.4 th/mm3 (4.0-11.0)
[2018-05-05 10:21] LABS: Chloride 108 meq/L (98-107); Potassium 3.6 meq/L (3.5-5.1); Sodium 141 meq/L (136-145)
[2018-05-05 10:24] LABS: Activated Partial Thrombo Time 29.4 sec (23.4-31.7); Albumin 2.6 g/dL (3.4-5.0); Anion Gap 7 meq/L (5-15); Blood Urea Nitrogen 8 mg/dL (7-18); Carbon Dioxide 26.2 meq/L (21.0-32.0); Glucose,Random 113 mg/dL (74-106); Prothrombin Time 9.8 sec (9.8-11.6)
[2018-05-05 10:27] LABS: Alanine Aminotransferase 31 U/L (12-78); Aspartate Aminotransferase 34 U/L (15-37)
[2018-05-05 10:28] LABS: Glomerular Filtration Rate Greater Than 89 mL/min (>89)
[2018-05-05 10:29] LABS: Total Protein 6.7 g/dL (6.4-8.2)
[2018-05-05 10:30] LABS: Alkaline Phosphatase 85 U/L (45-117)
--- NOTE | 2018-05-05 10:39 | XR ---
EXAM DATE: 05/05/2018 9:53 AM EST AGE/SEX: 68 years / Male INDICATIONS: Short of breath CLINICAL DATA: This is the patient's initial encounter. Patient reports that signs and symptoms have been present for 2 days and indicates a pain score of 0/10. MEDICAL/SURGICAL HISTORY: Stroke. Hypertension. Myocardial infarction. . CABG COMPARISON: C, CHEST 1V SINGLE AP, 04/28/2018. . FINDINGS: The previous bypass. There is cardiomegaly with mild interstitial edema. There is alveolar consolidat ion, pleural effusion or pneumothorax. The portion of the bony skeleton visualized is unremarkable. CONCLUSION: Previous bypass, cardiomegaly with mild edema. Electronically signed by: Cam Williamson MD Board Certified Radiologist 05/05/2018 10:38 AM EST
[2018-05-05 11:05] LABS: Creatine Kinase 94 U/L (39-308)
[2018-05-05 11:06] LABS: Troponin I 1.01 ng/mL (0.02-0.05)
--- NOTE | 2018-05-05 11:50 | ED ---
HPI General Chief complaint: Shortness of Breath/Dyspnea Stated complaint: sob x 2 days Time Seen by Provider: 05/05/18 09:23 Source: patient Mode of arrival: ambulatory Limitations: no limitations History of Present Illness HPI narrative: Patient is a 68 year old male who comes in complaining of SOB. He was recently here with an NSTEMI, had a cardiac cath and medical management was suggested. Patient was discharged 5 days ago. He says he was feeling well until about 3 days ago when he started to feel short of breath. He denies any chest pain or leg swelling. He says he has a Ventolin inhaler, but this has not been helping. He denies smoking cigarettes, but lives with someone who does. He denies fever or chills. Severity is moderate. Related Data Home Medications Medication Instructions Recorded Confirmed amlodipine 5 mg PO DAILY 04/28/18 05/05/18 aspirin [Aspirin Low Dose] 81 mg PO DAILY 04/28/18 05/05/18 atorvastatin 80 mg PO DAILY 04/28/18 05/05/18 clopidogrel 75 mg PO DAILY 04/28/18 05/05/18 metoprolol tartrate 50 mg PO BID 04/28/18 05/05/18 hydrocodone-acetaminophen [[place]] 1 tab PO BID PRN 04/29/18 05/05/18 albuterol sulfate [Ventolin HFA] 2 puff INHALATION Q4-6H PRN 05/05/18 05/05/18 lisinopril 5 mg PO DAILY 05/05/18 05/05/18 Previous Rx's Medication Instructions Recorded isosorbide mononitrate 30 mg PO DAILY #30 tab 04/30/18 Allergies Allergy/AdvReac Type Severity Reaction Status Date / Time No Known Allergies Allergy Verified 05/05/18 09:18 Review of Systems ROS: all other systems reviewed are negative Constitutional Denies chills and Denies fever(s) ENT Denies dizziness Cardiovascular Denies chest pain Respiratory Reports cough and Reports dyspnea Gastrointestinal Denies abdominal pain, Denies nausea and Denies vomiting Musculoskeletal Denies myalgias and Denies arthralgias Integumentary/Breasts Denies sores and Denies wounds Neurologic Denies focal weakness and Denies numbness PMFSH Medical History Medical History Chronic pain (Acute) Hypertension (Acute) Myocardial infarct (Acute) Surgical History Surgical History Hx of CABG (Acute) Social History Social History Substance History: No History of Abuse Second Hand Smoke Exposure: Yes Smoking Status: Former smoker Tobacco Type: Cigarettes How Often Do You Have a Drink Containing Alcohol: Monthly or less Recent Travel in [facility] within the Last 8 Weeks: No Recent Out of Country Travel within the Last 8 Weeks: No Immunization History Tetanus Immunization: Unsure Exam Narrative Exam Narrative: GENERAL: Awake and alert, in no acute distress. SKIN: Focused skin assessment warm/dry. HEAD: Atraumatic. Normocephalic. EYES: Pupils equal and round. No scleral icterus. No injection or drainage. ENT: No nasal bleeding or discharge. Mucous membranes pink and moist. NECK: Trachea midline. No JVD. CARDIOVASCULAR: Regular rate and rhythm. No murmur appreciated. RESPIRATORY: No accessory muscle use. Diffuse wheezing and rhonchi. Breath sounds equal bilaterally. GASTROINTESTINAL: Abdomen soft, non-tender, nondistended. MUSCULOSKELETAL: No obvious deformities. No clubbing. No cyanosis. No edema. NEUROLOGICAL: Awake and alert. No obvious cranial nerve deficits. Motor grossly within normal limits. Normal speech. PSYCHIATRIC: Appropriate mood and affect; insight and judgment normal. Course Initial Documented Vital Signs Temperature 98.3 F 05/05/18 09:15 Pulse Rate 66 05/05/18 09:15 Respiratory Rate 22 05/05/18 09:15 Blood Pressure 124/69 05/05/18 09:15 Pulse Oximetry 94 L 05/05/18 09:15 Last Documented Vital Signs Temperature 98.3 F 05/05/18 09:15 Pulse Rate 69 05/05/18 11:17 Respiratory Rate 20 05/05/18 11:17 Blood Pressure 109/56 L 05/05/18 11:00 Pulse Oximetry 94 L 05/05/18 11:01 Medical Decision Making MDM Narrative Medical decision making narrative: Patient is a 68 year old male who comes in complaining of shortness of breath. Exam shows wheezing and rhonchi throughout both lungs. IV established, labs sent. Given 3 duonebs and Solumedrol. Labs show an elevated troponin, however, it is much improved from the 19.3, 5 days ago. CXR shows mild edema, no evidence of pneumonia. Patient continued to have wheezing, given additional albuterol. Room air sat remains 89-91%. Patient will be admitted for management of COPD exacerbation. Medical Screen Exam Complete: Yes Emergency Medical Condition: Yes Differential Diagnosis Differential Diagnosis: COPD exacerbation vs pneumonia vs CHF Medical Records Medical records reviewed: Yes I reviewed the patient's medical records. Lab Data Lab results reviewed: Yes I reviewed the patient's lab results. Result diagrams: 05/05/18 09:42 05/05/18 09:42 Lab Results 05/05/18 05/05/18 05/05/18 Range/Units 09:42 09:42 09:42 CBC w Diff Auto diff final WBC 6.4 (4.0-11.0) th/mm3 RBC 3.98 L (4.50-5.90) mil/mm3 Hgb 13.1 (13.0-17.0) gm/dL Hct 38.3 L (39.0-51.0) % MCV 96.2 (80.0-100.0) fL MCH 32.9 (27.0-34.0) pg MCHC 34.2 (32.0-36.0) % RDW 12.8 (11.6-17.2) % Plt Count 415 (150-450) th/mm3 MPV 7.1 (7.0-11.0) fL Neut % (Auto) 65.0 (16.0-70.0) % Lymph % (Auto) 22.2 (9.0-44.0) % [place] % (Auto) 7.6 (0.0-8.0) % Eos % (Auto) 0.4 (0.0-4.0) % Baso % (Auto) 4.8 H (0.0-2.0) % Neut # (Auto) 4.2 (1.8-7.7) th/mm3 Lymph # (Auto) 1.4 (1.0-4.8) th/mm3 [place] # (Auto) 0.5 (0.0-0.9) th/mm3 Eos # (Auto) 0.0 (0.0-0.4) th/mm3 Baso # (Auto) 0.3 H (0.0-0.2) th/mm3 WBC Differential . Differential Comment . PT 9.8 (9.8-11.6) sec INR 1.0 Ratio APTT 29.4 (23.4-31.7) sec Sodium 141 (136-145) meq/L Potassium 3.6 (3.5-5.1) meq/L Chloride 108 H (98-107) meq/L Carbon Dioxide 26.2 (21.0-32.0) meq/L Anion Gap 7 (5-15) meq/L BUN 8 (7-18) mg/dL Creatinine 0.84 (0.60-1.30) mg/dL Estimated GFR Greater than 89 (>89) mL/min Random Glucose 113 H (74-106) mg/dL Calcium 8.0 L (8.5-10.1) mg/dL Total Bilirubin 0.2 (0.2-1.0) mg/dL AST 34 (15-37) U/L ALT 31 (12-78) U/L Alkaline Phosphatase 85 (45-117) U/L Total Creatine Kinase 94 (39-308) U/L Troponin I 1.01 H* (0.02-0.05) ng/mL B-Natriuretic Peptide (0-100) pg/mL Total Protein 6.7 D (6.4-8.2) g/dL Albumin 2.6 L (3.4-5.0) g/dL 05/05/18 Range/Units 09:42 CBC w Diff WBC (4.0-11.0) th/mm3 RBC (4.50-5.90) mil/mm3 Hgb (13.0-17.0) gm/dL Hct (39.0-51.0) % MCV (80.0-100.0) fL MCH (27.0-34.0) pg MCHC (32.0-36.0) % RDW (11.6-17.2) % Plt Count (150-450) th/mm3 MPV (7.0-11.0) fL Neut % (Auto) (16.0-70.0) % Lymph % (Auto) (9.0-44.0) % [place] % (Auto) (0.0-8.0) % Eos % (Auto) (0.0-4.0) % Baso % (Auto) (0.0-2.0) % Neut # (Auto) (1.8-7.7) th/mm3 Lymph # (Auto) (1.0-4.8) th/mm3 [place] # (Auto) (0.0-0.9) th/mm3 Eos # (Auto) (0.0-0.4) th/mm3 Baso # (Auto) (0.0-0.2) th/mm3 WBC Differential Differential Comment PT (9.8-11.6) sec INR Ratio APTT (23.4-31.7) sec Sodium (136-145) meq/L Potassium (3.5-5.1) meq/L Chloride (98-107) meq/L Carbon Dioxide (21.0-32.0) meq/L Anion Gap (5-15) meq/L BUN (7-18) mg/dL Creatinine (0.60-1.30) mg/dL Estimated GFR (>89) mL/min Random Glucose (74-106) mg/dL Calcium (8.5-10.1) mg/dL Total Bilirubin (0.2-1.0) mg/dL AST (15-37) U/L ALT (12-78) U/L Alkaline Phosphatase (45-117) U/L Total Creatine Kinase (39-308) U/L Troponin I (0.02-0.05) ng/mL B-Natriuretic Peptide 416 H (0-100) pg/mL Total Protein (6.4-8.2) g/dL Albumin (3.4-5.0) g/dL Imaging Data Radiologist's impression: Chest X-Ray 05/05/18 09:27 CONCLUSION: Previous bypass, cardiomegaly with mild edema. ECG Data EKG Prior to Arrival: No Attestation: I personally reviewed and interpreted this ECG as follows: Interpretation: ECG shows NSR at a rate of 65, RBBB Discharge Plan Discharge Disposition Patient Disposition: ED Admit(ED Internal Use Only) Discharge Condition Condition: Stable Discharge Details Diagnosis: Acute exacerbation of chronic obstructive airways disease Physicians Team ED Provider: Katalina Terry Primary Care Provider: Iraida Espinal Rxs /Orders / Referrals /Forms Prescriptions: No Action lisinopril 10 mg tablet 5 mg PO DAILY RF: 0 albuterol sulfate [Ventolin HFA] 90 mcg/actuation Hfa Aerosol Inhaler 2 puff INHALATION Q4-6H PRN (Reason: Shortness Of Breath) RF: 0 atorvastatin 80 mg Tablet 80 mg PO DAILY RF: 0 metoprolol tartrate 100 mg Tablet 50 mg PO BID RF: 0 clopidogrel 75 mg Tablet 75 mg PO DAILY RF: 0 amlodipine 5 mg Tablet 5 mg PO DAILY RF: 0 aspirin [Aspirin Low Dose] 81 mg Tablet,Delayed Release (Dr/Ec) 81 mg PO DAILY RF: 0 hydrocodone-acetaminophen [[place]] 7.5-325 mg Tablet 1 tab PO BID PRN (Reason: Pain) RF: 0 isosorbide mononitrate 30 mg Tablet Extended Release 24 Hr 30 mg PO DAILY Qty: 30 RF: 0 Discharge Interventions Interventions: Vital Signs Last Done: 05/05/18 11:00 Status ED Status: With Doctor
--- NOTE | 2018-05-05 14:41 | P.HPIM ---
History of Present Illness Primary Care Physician: Iraida Espinal MD Chief Complaint: Wheezing, shortness of breath and dry cough History of Present Illness: 68-year-old man with past medical history of CAD who recently was admitted to [facility] and discharged on May 01, 2018 after underwent left heart catheterizations without any stent placement for non-ST elevation [place], presented to the ED for evaluation of worsening symptoms of dry cough, slight shortness of breath with significant wheezing which started on Wednesday May 02, 2018. Patient states, today despite using rescue inhaler x8 times he did not have any significant improvement in respiratory status and decided to come to the hospital for further treatment. Denies tobacco use times 2 years now, however lives with a roommate who is a smoker. Review of Systems Review of Systems: all other systems reviewed are negative PMFSH Medical History Medical History Chronic pain (Acute) Hypertension (Acute) Myocardial infarct (Acute) Surgical History Surgical History Hx of CABG (Acute) Family History Family History Other CAD (coronary artery disease) Social History Social History Substance History: No History of Abuse Second Hand Smoke Exposure: Yes Smoking Status: Former smoker Tobacco Type: Cigarettes How Often Do You Have a Drink Containing Alcohol: Monthly or less Recent Travel in [facility] within the Last 8 Weeks: No Recent Out of Country Travel within the Last 8 Weeks: No Immunization History Tetanus Immunization: Unsure Medications and Allergies Allergies Allergy/AdvReac Type Severity Reaction Status Date / Time No Known Allergies Allergy Verified 05/05/18 09:18 Home Medications Medication Instructions Recorded Confirmed Type amlodipine 5 mg PO DAILY 04/28/18 05/05/18 History aspirin [Aspirin Low Dose] 81 mg PO DAILY 04/28/18 05/05/18 History atorvastatin 80 mg PO DAILY 04/28/18 05/05/18 History clopidogrel 75 mg PO DAILY 04/28/18 05/05/18 History metoprolol tartrate 50 mg PO BID 04/28/18 05/05/18 History hydrocodone-acetaminophen [[place]] 1 tab PO BID PRN 04/29/18 05/05/18 History albuterol sulfate [Ventolin HFA] 2 puff INHALATION Q4-6H PRN 05/05/18 05/05/18 History lisinopril 5 mg PO DAILY 05/05/18 05/05/18 History Active Medications: Active Medications Acetaminophen (Tylenol) 650 mg PO Q4H PRN PRN Reason: Temp > 100.4 Al Hydroxide/Mg Hydroxide (Milk Of Darleen Gardner) 30 ml PO Q12H PRN PRN Reason: Mild Constipation Albuterol (Duoneb Neb (Prn)) 1 ampul NEB Q15M PRN PRN Reason: SHORTNESS OF BREATH/WHEEZING Last Admin: 05/05/18 09:37 Dose: 1 ampul Albuterol (Duoneb Neb (Prn)) 1 ampul NEB Q2HR NEB PRN PRN Reason: SHORTNESS OF BREATH Amlodipine Besylate (Norvasc) 5 mg PO DAILY [facility] Aspirin (Ecotrin) 81 mg PO DAILY [facility] Atorvastatin Calcium (Lipitor) 80 mg PO DAILY [facility] Azithromycin (Zithromax) 250 mg PO DAILY [facility] Budesonide/Formoterol Fumarate (Symbicort 160/4.5 Mcg Inh) 2 puff INH BID [facility] Clopidogrel Bisulfate (Plavix) 75 mg PO DAILY [facility] Enoxaparin Sodium (Lovenox Inj) 30 mg SQ Q24H [facility] Guaifenesin (Mucinex Er) 600 mg PO BID [facility] Isosorbide Mononitrate (Imdur) 30 mg PO DAILY [facility] Lisinopril (Prinivil) 5 mg PO DAILY [facility] Methylprednisolone Sodium Succinate (Solumedrol Inj) 40 mg IV.PUSH Q6H [facility] Metoprolol Tartrate (Lopressor) 50 mg PO BID [facility] Ondansetron HCl (Zofran Inj) 4 mg IV.PUSH Q6H PRN PRN Reason: NAUSEA OR VOMITING Sodium Chloride (Ns Flush) 2 ml IV.FLUSH BID [facility] Sodium Chloride (Ns Flush) 2 ml IV.FLUSH PRN PRN PRN Reason: FLUSH AFTER USING IV ACCESS Tiotropium [place] (Spiriva 18 Mcg Inh) 18 mcg INH DAILY [facility] Physical Exam Vital signs: Vital Signs 05/05/18 09:15 05/05/18 09:27 05/05/18 09:38 Temperature 98.3 F Pulse Rate 66 64 60 Respiratory Rate 22 18 20 Blood Pressure 124/69 111/58 L Pulse Oximetry 94 L 95 05/05/18 09:43 05/05/18 09:51 05/05/18 09:54 Temperature Pulse Rate 66 65 65 Respiratory Rate 20 20 Blood Pressure Pulse Oximetry 95 05/05/18 11:00 05/05/18 11:01 05/05/18 11:17 Temperature Pulse Rate 69 69 Respiratory Rate 18 20 Blood Pressure 109/56 L Pulse Oximetry 94 L 94 L 05/05/18 11:44 05/05/18 11:45 Temperature Pulse Rate Respiratory Rate Blood Pressure Pulse Oximetry 89 L 92 L Intake & Output 05/04/18 05/05/18 05/05/18 18:59 06:59 18:59 Weight 80.2 kg Narrative: GENERAL: NAD SKIN: Warm and dry. HEAD: Atraumatic. Normocephalic. EYES: Pupils equal and round. No scleral icterus. No injection or drainage. ENT: No nasal bleeding or discharge. Mucous membranes pink and moist. NECK: Trachea midline. No JVD. CARDIOVASCULAR: Regular rate and rhythm. RESPIRATORY: No accessory muscle use. Clear to auscultation. Breath sounds decrease bilaterally. +exp wheezings GASTROINTESTINAL: Abdomen soft, non-tender, nondistended. Hepatic and splenic margins not palpable. MUSCULOSKELETAL: Extremities without clubbing, cyanosis, or edema. No obvious deformities. NEUROLOGICAL: Awake and alert. No obvious cranial nerve deficits. Motor grossly within normal limits. Five out of 5 muscle strength in the arms and legs. Normal speech. PSYCHIATRIC: Appropriate mood and affect; insight and judgment normal. Results Labs CBC & Chem 7: 05/05/18 09:42 05/05/18 09:42 Imaging Impressions Chest X-Ray 05/05/18 09:27 CONCLUSION: Previous bypass, cardiomegaly with mild edema. Caprini VTE Risk Assessment Caprini VTE Risk Assessment: Moderate/High Risk (score >= 2) Caprini Risk Assessment Model: Point Value = 1 Point Value = 2 Point Value = 3 Point Value = 5 Age 41-60 Minor surgery BMI > 25 kg/m2 Swollen legs Varicose veins or History of unexplained or recurrent spontaneous Oral contraceptives or hormone replacement Sepsis (< 1 month) Serious lung disease, including pneumonia (< 1 month) Abnormal pulmonary function Acute myocardial infarction Congestive heart failure (< 1 month) History of inflammatory bowel disease Medical patient at bed rest Age 61-74 Arthroscopic surgery Major open surgery (> 45 min) Laparoscopic surgery (> 45 min) Malignancy Confined to bed (> 72 hours) Immobilizing plaster cast Central venous access Age >= 75 History of VTE Family history of VTE Factor V Leiden Prothrombin [id number] Lupus anticoagulant Anticardiolipin antibodies Elevated serum homocysteine Heparin-induced thrombocytopenia Other congenital or acquired thrombophilia Stroke (< 1 month) Elective arthroplasty Hip, pelvis, or leg fracture Acute spinal cord injury (< 1 month) Prophylaxis Regimen: Total Risk Factor Score Risk Level Prophylaxis Regimen 0-1 Low Early ambulation 2 Moderate Order ONE of the following: *Sequential Compression Device (SCD) *Heparin 5000 units SQ BID 3-4 Higher Order ONE of the following medications: *Heparin 5000 units SQ TID *Enoxaparin/Lovenox 40 mg SQ daily (WT < 150 kg, CrCl > 30 mL/min) *Enoxaparin/Lovenox 30 mg SQ daily (WT < 150 kg, CrCl > 10-29 mL/min) *Enoxaparin/Lovenox 30 mg SQ BID (WT < 150 kg, CrCl > 30 mL/min) AND/OR *Sequential Compression Device (SCD) 5 or more Highest Order ONE of the following medications: *Heparin 5000 units SQ TID (Preferred with Epidurals) *Enoxaparin/Lovenox 40 mg SQ daily (WT < 150 kg, CrCl > 30 mL/min) *Enoxaparin/Lovenox 30 mg SQ daily (WT < 150 kg, CrCl > 10-29 mL/min) *Enoxaparin/Lovenox 30 mg SQ BID (WT < 150 kg, CrCl > 30 mL/min) AND *Sequential Compression Device (SCD) Assessment and Plan Plan 68-year-old man with COPD exacerbation Will start Solu-Medrol 40 mg IV every 6 hours, Spiriva, Symbicort, Mucinex and azithromycin Continue with DuoNeb as needed Maintain oxygen saturation above 90% Outpatient PFTs Pulmonary medicine consultation PRN History of hypertension, CAD, and recent non-ST elevation [place] Resume outpatient medications Patient with incidental lung nodule finding Follow-up with pulmonary medicine and repeat chest CT outpatient DVT prophylaxis: Lovenox
[2018-05-05] MEDS: MethylPREDNISolone Sod Succinate Inj 40 MG/ML Vial IV.PUSH SCH ×2 (15:34→21:36)
--- NOTE | 2018-05-05 18:11 | ECG ---
Date Performed: 05/05/2018 Time Performed: 09:34:38 PTAGE: 68 years EKG: Sinus rhythm MARKED LEFT AXIS DEVIATION RIGHT BUNDLE BRANCH BLOCK MODERATE T-WAVE ABNORMALITY ABNORMAL ECG PREVIOUS TRACING : 04/30/2018 14.22 Since the previous tracing, no significant change noted DOCTOR: [place] Tejeda Interpretating Date/Time 05/05/2018 18:10:14
[2018-05-05] MEDS: guaiFENesin 600 MG ER Tablet PO SCH (21:36)
[2018-05-05] MEDS: Acetaminophen 325 MG Tablet PO PRN (21:37)
[2018-05-05] MEDS: Budesonide-Formoterol 160/4.5 MCG 6 GM Inhaler INH SCH (21:37)
[2018-05-05] MEDS: Metoprolol Tartrate 50 MG Tablet PO SCH (21:37)
[2018-05-06] MEDS: MethylPREDNISolone Sod Succinate Inj 40 MG/ML Vial IV.PUSH SCH ×3 (03:09→15:06)
[2018-05-06] MEDS: Acetaminophen 325 MG Tablet PO PRN ×2 (03:16→09:39)
[2018-05-06] MEDS ORDERED: Tiotropium Bromide 18 MCG/ACT Inhaler INH SCH (09:00)
[2018-05-06] MEDS ORDERED: Azithromycin 250 MG Tablet PO SCH (09:00)
[2018-05-06] MEDS ORDERED: amLODIPine 5 MG Tablet PO SCH (09:00)
[2018-05-06] MEDS ORDERED: Isosorbide Mononitrate 30 MG ER 24HR Tablet (Imdur) PO SCH (09:00)
[2018-05-06] MEDS ORDERED: Enoxaparin Inj 30 MG/0.3 ML Syringe SQ SCH (09:00)
[2018-05-06] MEDS ORDERED: Lisinopril 10 MG Tablet PO SCH (09:00)
[2018-05-06] MEDS: Metoprolol Tartrate 50 MG Tablet PO SCH (09:17)
[2018-05-06] MEDS: guaiFENesin 600 MG ER Tablet PO SCH (09:18)
[2018-05-06] MEDS: Budesonide-Formoterol 160/4.5 MCG 6 GM Inhaler INH SCH (09:21)
--- NOTE | 2018-05-06 10:07 | P.PNIM ---
Subjective Interval history: Follow-up COPD exacerbation May 06, 2018patient seen and examined, reports some improvement of shortness of breath and states he is back to his baseline. Complains of lower extremities pain. Physical Exam Vital signs: Vital Signs 05/05/18 11:00 05/05/18 11:01 05/05/18 11:17 Temperature Pulse Rate 69 69 Respiratory Rate 18 20 Blood Pressure 109/56 L Pulse Oximetry 94 L 94 L 05/05/18 11:44 05/05/18 11:45 05/05/18 15:12 Temperature Pulse Rate Respiratory Rate Blood Pressure Pulse Oximetry 89 L 92 L 95 05/05/18 18:37 05/05/18 21:22 05/06/18 00:29 Temperature 97.1 F L 97.9 F 97.4 F L Pulse Rate 70 70 57 L Respiratory Rate 18 20 22 Blood Pressure 113/58 L 123/64 131/66 Pulse Oximetry 95 95 94 L 05/06/18 03:08 05/06/18 04:30 05/06/18 05:52 Temperature 96.6 F L Pulse Rate 65 66 60 Respiratory Rate 18 24 18 Blood Pressure 131/87 Pulse Oximetry 98 05/06/18 07:40 05/06/18 08:22 Temperature Pulse Rate 69 Respiratory Rate 16 Blood Pressure Pulse Oximetry 97 Intake & Output 05/05/18 05/06/18 05/06/18 18:59 06:59 18:59 Intake Total 240 / 240 Balance 240 / 240 Weight 80.2 kg Intake: Oral 240 / 240 Other: # Voids 1 2 Weight On Admission 80.2 kg Narrative: GENERAL: NAD SKIN: Warm and dry. HEAD: Atraumatic. Normocephalic. EYES: Pupils equal and round. No scleral icterus. No injection or drainage. ENT: No nasal bleeding or discharge. Mucous membranes pink and moist. NECK: Trachea midline. No JVD. CARDIOVASCULAR: Regular rate and rhythm. RESPIRATORY: No accessory muscle use. Clear to auscultation. Breath sounds decrease bilaterally. +exp wheezings GASTROINTESTINAL: Abdomen soft, non-tender, nondistended. Hepatic and splenic margins not palpable. MUSCULOSKELETAL: Extremities without clubbing, cyanosis, or edema. No obvious deformities. NEUROLOGICAL: Awake and alert. No obvious cranial nerve deficits. Motor grossly within normal limits. Five out of 5 muscle strength in the arms and legs. Normal speech. PSYCHIATRIC: Appropriate mood and affect; insight and judgment normal. Results Labs CBC & Chem 7: 05/05/18 09:42 05/05/18 09:42 Imaging Imaging: Impressions Chest X-Ray 05/05/18 09:27 CONCLUSION: Previous bypass, cardiomegaly with mild edema. Assessment and Plan Plan 68-year-old man with COPD exacerbation-improving Currently on Solu-Medrol 40 mg IV every 6 hours, Spiriva, Symbicort, Mucinex and azithromycin Will discharge home on prednisone 20 mg daily times 7 days Continue with DuoNeb as needed Maintain oxygen saturation above 90% Outpatient PFTs Pulmonary medicine consultation PRN Perform walk test now prior to discharge History of hypertension, CAD, and recent non-ST elevation [place] Continue outpatient medications However secondary to low BP, will hold Lopressor and Norvasc on discharge Patient with incidental lung nodule finding Follow-up with pulmonary medicine and repeat chest CT outpatient DVT prophylaxis: Lovenox Discharge patient to home Condition on discharge: Improved Regular Diet as tolerated Ad Mildred activity Rx written:see EMR Follow-up with primary care physician Progress Note: Quality VTE Deep Vein Thrombosis/Pulmonary Embolism Present on Admission: No
[2018-05-06 14:17] VITALS: BP 109/67; PULSE 69; RESP 20; TEMP 96.6; O2SAT 95
== END 2018-05-06 17:25 | disposition home or self-care (01) ==
LOC: PHEDA 09:15 → PHED 09:15 → PH3 13:01
PROVIDERS: ADMIT Hospitalist; ATTEND Hospitalist
DX: Z79.899 Other long term (current) drug therapy; Z79.82 Long term (current) use of aspirin; I11.9 Hypertensive heart disease without heart failure; Z87.891 Personal history of nicotine dependence; G89.29 Other chronic pain; J44.1 Chronic obstructive pulmonary disease with (acute) exacerbation; I25.10 Atherosclerotic heart disease of native coronary artery without angina pectoris; Z95.1 Presence of aortocoronary bypass graft; Z79.02 Long term (current) use of antithrombotics/antiplatelets; I25.2 Old myocardial infarction
CPT/HCPCS: 71010; 71045; 80053; 82550; 82948; 82962; 83520; 83880; 84484; 85025; 85610; 85730; 90774; 93005; 94618; 94620; 94640; 94664; 94665; 96374; 96375; 96376; 99285; C8952; G0378; J1650; J1940; J2920; J2930